=== PATIENT | male | born 1960 | race Two or more races ===

== ENCOUNTER 2022-08-05 21:22 | Inpatient (IN) | payer OTHER, SELFPAY ==
--- NOTE | ~2022-08-05 | XR_ITS ---
EXAMINATION: XR CHEST CLINICAL INFORMATION: Chest pain COMPARISON: None TECHNIQUE: Frontal view of the chest was obtained. FINDINGS: No significant abnormality is noted involving the heart, lungs, mediastinum, bony thorax or soft tissues. XR/XR chest 1V IMPRESSION: Unremarkable examination.
[2022-08-05 21:40] VITALS: BP 122/76; PULSE 123; RESP 18; TEMP 36.6; O2SAT 96; BMI 21.7
--- NOTE | 2022-08-05 21:52 | ED_ITS ---
HPI - Chest Pain General Chief Complaint: General Medical Stated Complaint: cp Time Seen by Provider: 08/05/22 21:52 Source: patient Mode of arrival: ambulatory Limitations: language barrier History of Present Illness HPI narrative: Patient from [place] Romanian-speaking with history of atrial fibrillation comes here for increased shortness of breath and palpitations started half an hour prior to arrival. Patient is on Coumadin and at in a long. Had similar episode a week ago also patient has chronic prostate problem with decreased urination patient felt discomfort in the left chest with palpitations on arrival patient's heart rate was in 130s with AFib no fever no chills Related Data Allergies Allergy/AdvReac Type Severity Reaction Status Date / Time No Known Allergies Allergy Verified 08/05/22 21:43 Review of Systems Review of Systems: Yes all other systems are reviewed and are negative [facility] Social History Social History Advance Directives: No Advance Directives Information Provided: No Physical Exam Vital Signs: Vital Signs: Last Vital Signs Temp 98.9 F 08/05/22 23:46 Pulse 111 H 08/06/22 00:55 Resp 16 08/06/22 00:55 BP 126/80 08/06/22 00:55 Pulse Ox 100 08/06/22 00:55 O2 Del Method 08/06/22 00:55 BMI result Body Mass Index 21.7 Appearance: Alert. Oriented X3. No acute distress. Eyes: PERRLA, No Nystagmus ENT: Pharynx normal. Oral Mucosa moist Neck: Normal inspection. Neck supple. CVS: Irregular irregular heart rate. Pulses normal. Respiratory: No respiratory distress. Equal air entry bilateral, no whee zing/rales/rhonchi Abdomen: Soft and nontender. Bowel sounds are present, no mass palpable, no CVA tenderness Skin: Skin warm and dry. Normal skin color. Normal skin turgor. Extremities: No lower extremity edema. No calf tenderness Neuro: Oriented X 3. No motor deficit. No sensory deficit.No cerebellar signs , cranial nerves II-XII intact MDM - Chest Pain MDM Narrative Medical decision making narrative: 0005 Patient responded partially to Cardizem IV will give dose of Lopressor and recheck 0100 still after Lopressor them Lopressor patient heart rate fluctuating between 110 and 20 will start patient on Cardizem drip plan to admit Lab Data Attestation: I reviewed the patient's lab results. Result diagrams: 08/05/22 22:21 08/05/22 22:21 Labs: Lab Results 08/05/22 08/05/22 08/05/22 Range/Units 22:21 22:21 22:21 WBC 5.2 (4.8-10.8) X10*3/uL RBC 4.16 L (4.60-5.80) X10*6/uL Hgb 12.1 L (14.0-18.0) g/dl Hct 33.9 L (42.0-52.0) % MCV 81.5 (80.0-98.0) fL MCH 29.1 (27.0-33.0) pg MCHC 35.7 (31.0-36.0) g/dl RDW 14.5 (11.0-16.0) % Plt Count 235 (160-400) X10*3/uL MPV 10.0 (9.4-12.4) fL Immature Gran % (Auto) 1.9 H (0.0-0.4) % Neut % (Auto) 80.3 H (45-73) % Lymph % (Auto) 15.0 L (20-40) % [place] % (Auto) 1.2 L (2-11) % Eos % (Auto) 1.2 (0-4) % Baso % (Auto) 0.4 (0-2) % Lymph # (Auto) 0.8 L (1.2-4.9) X10*3/uL [place] # (Auto) 0.1 (0.1-1.2) X10*3/uL Eos # (Auto) 0.1 (0.0-0.4) X10*3/uL Baso # (Auto) 0.0 (0.0-0.2) X10*3/uL Abs Immat Gran (auto) 0.10 H (0.00-0.03) X10*3/uL Absolute Neuts (auto) 4.2 (2.0-8.3) x10*3/uL Absolute Nucleated RBC 0.000 (0.0-0.012) X10*3/uL Nucleated RBC % (auto) 0.0 (0.0-0.2) /100WBC PT 22.8 H (10.0-13.1) SEC INR 1.9 H (0.9-1.1) APTT (26.0-36.4) SEC Sodium (135-145) mmol/L Potassium (3.3-5.1) mmol/L Chloride (96-108) mmol/L Carbon Dioxide (22-29) mmol/L Anion Gap (12-20) BUN (9-16) mg/dL Creatinine (0.5-1.4) mg/dL Estim Creat Clear Calc Estimated GFR Random Glucose (60-115) mg/dL Calcium (8.4-10.2) mg/dL Magnesium (1.6-2.6) mg/dL Total Bilirubin (0.0-1.0) mg/dL AST (5-37) U/L ALT (0-40) U/L Alkaline Phosphatase (39-117) U/L Troponin I High Sens (<3.5-35.0) ng/L Total Protein (6.5-8.0) g/dL Albumin (3.5-5.0) g/dL Ethyl Alcohol mg/dL COVID-19 (ENID) Negative (Negative) COVID-19 Clin Com See Note 08/05/22 08/05/22 08/05/22 Range/Units 22:21 22:21 22:21 WBC (4.8-10.8) X10*3/uL RBC (4.60-5.80) X10*6/uL Hgb (14.0-18.0) g/dl Hct (42.0-52.0) % MCV (80.0-98.0) fL MCH (27.0-33.0) pg MCHC (31.0-36.0) g/dl RDW (11.0-16.0) % Plt Count (160-400) X10*3/uL MPV (9.4-12.4) fL Immature Gran % (Auto) (0.0-0.4) % Neut % (Auto) (45-73) % Lymph % (Auto) (20-40) % [place] % (Auto) (2-11) % Eos % (Auto) (0-4) % Baso % (Auto) (0-2) % Lymph # (Auto) (1.2-4.9) X10*3/uL [place] # (Auto) (0.1-1.2) X10*3/uL Eos # (Auto) (0.0-0.4) X10*3/uL Baso # (Auto) (0.0-0.2) X10*3/uL Abs Immat Gran (auto) (0.00-0.03) X10*3/uL Absolute Neuts (auto) (2.0-8.3) x10*3/uL Absolute Nucleated RBC (0.0-0.012) X10*3/uL Nucleated RBC % (auto) (0.0-0.2) /100WBC PT (10.0-13.1) SEC INR (0.9-1.1) APTT 31.0 (26.0-36.4) SEC Sodium 139 (135-145) mmol/L Potassium 3.5 (3.3-5.1) mmol/L Chloride 102 (96-108) mmol/L Carbon Dioxide 24 (22-29) mmol/L Anion Gap 17 (12-20) BUN 20 H (9-16) mg/dL Creatinine 0.75 (0.5-1.4) mg/dL Estim Creat Clear Calc 87.3 Estimated GFR > 60 Random Glucose 75 (60-115) mg/dL Calcium 8.5 (8.4-10.2) mg/dL Magnesium 1.5 L (1.6-2.6) mg/dL Total Bilirubin 1.7 H (0.0-1.0) mg/dL AST 83 H (5-37) U/L ALT 80 H (0-40) U/L Alkaline Phosphatase 363 H (39-117) U/L Troponin I High Sens 6.5 (<3.5-35.0) ng/L Total Protein 6.5 (6.5-8.0) g/dL Albumin 3.4 L (3.5-5.0) g/dL Ethyl Alcohol mg/dL COVID-19 (ENID) (Negative) COVID-19 Clin Com 08/05/22 Range/Units 22:21 WBC (4.8-10.8) X10*3/uL RBC (4.60-5.80) X10*6/uL Hgb (14.0-18.0) g/dl Hct (42.0-52.0) % MCV (80.0-98.0) fL MCH (27.0-33.0) pg MCHC (31.0-36.0) g/dl RDW (11.0-16.0) % Plt Count (160-400) X10*3/uL MPV (9.4-12.4) fL Immature Gran % (Auto) (0.0-0.4) % Neut % (Auto) (45-73) % Lymph % (Auto) (20-40) % [place] % (Auto) (2-11) % Eos % (Auto) (0-4) % Baso % (Auto) (0-2) % Lymph # (Auto) (1.2-4.9) X10*3/uL [place] # (Auto) (0.1-1.2) X10*3/uL Eos # (Auto) (0.0-0.4) X10*3/uL Baso # (Auto) (0.0-0.2) X10*3/uL Abs Immat Gran (auto) (0.00-0.03) X10*3/uL Absolute Neuts (auto) (2.0-8.3) x10*3/uL Absolute Nucleated RBC (0.0-0.012) X10*3/uL Nucleated RBC % (auto) (0.0-0.2) /100WBC PT (10.0-13.1) SEC INR (0.9-1.1) APTT (26.0-36.4) SEC Sodium (135-145) mmol/L Potassium (3.3-5.1) mmol/L Chloride (96-108) mmol/L Carbon Dioxide (22-29) mmol/L Anion Gap (12-20) BUN (9-16) mg/dL Creatinine (0.5-1.4) mg/dL Estim Creat Clear Calc Estimated GFR Random Glucose (60-115) mg/dL Calcium (8.4-10.2) mg/dL Magnesium (1.6-2.6) mg/dL Total Bilirubin (0.0-1.0) mg/dL AST (5-37) U/L ALT (0-40) U/L Alkaline Phosphatase (39-117) U/L Troponin I High Sens (<3.5-35.0) ng/L Total Protein (6.5-8.0) g/dL Albumin (3.5-5.0) g/dL Ethyl Alcohol < 10 mg/dL COVID-19 (ENID) (Negative) COVID-19 Clin Com ECG Data ECG #1: Attestation: I personally reviewed and interpreted this ECG as follows: Interpretation: Atrial fibrillation with heart rate 101 beats per minute nonspecific ST-T changes no acute ischemia Discharge Plan Discharge Clinical Impression: Atrial fibrillation with rapid ventricular response Patient Disposition: Admitted As Inpatient
--- NOTE | 2022-08-05 21:54 | ECG_ITS ---
Test Reason : TACHYCARDIA Blood Pressure : / mmHG Vent. Rate : 101 BPM Atrial Rate : 000 BPM P-R Int : 000 ms QRS Dur : 088 ms QT Int : 328 ms P-R-T Axes : 000 034 053 degrees QTc Int : 425 ms Atrial fibrillation with rapid ventricular response Nonspecific ST abnormality Abnormal ECG No previous ECGs available Referred By: Chung Meneses Electronically Signed By:YOLANDA CARRILLO
[2022-08-05 22:33] LABS: MANUAL DIFF FLAG NO
[2022-08-05 22:37] LABS: Basophils Percent Auto 0.4 % (0-2); Eosinophils Absolute Auto 0.1 X10*3/uL (0.0-0.4); Eosinophils Percent Auto 1.2 % (0-4); Hematocrit 33.9 % (42.0-52.0); Hemoglobin 12.1 g/dl (14.0-18.0); Imm Gran Pct Auto 1.9 % (0.0-0.4); Lymphocytes Absolute Auto 0.8 X10*3/uL (1.2-4.9); Mean Corpuscular HGB Conc 35.7 g/dl (31.0-36.0); Mean Corpuscular Hemoglobin 29.1 pg (27.0-33.0); Mean Corpuscular Volume 81.5 fL (80.0-98.0); Monocytes Absolute Auto 0.1 X10*3/uL (0.1-1.2); Monocytes Percent Auto 1.2 % (2-11); Neutrophils Absolute Auto 4.2 x10*3/uL (2.0-8.3); Neutrophils Percent Auto 80.3 % (45-73); Platelet Count 235 X10*3/uL (160-400); Red Blood Count 4.16 X10*6/uL (4.60-5.80); Red Cell Distribution Width 14.5 % (11.0-16.0); White Blood Count 5.2 X10*3/uL (4.8-10.8)
[2022-08-05 22:42] LABS: INTERNATIONAL NORM RATIO 1.9 (0.9-1.1); Prothrombin Time 22.8 SEC (10.0-13.1)
[2022-08-05 22:48] LABS: Ethanol < 10 mg/dL
[2022-08-05 22:51] LABS: Alanine Aminotransferase 80 U/L (0-40); Albumin Level 3.4 g/dL (3.5-5.0); Alkaline Phosphatase 363 U/L (39-117); Anion Gap 17 (12-20); Aspartate Amino Transferase 83 U/L (5-37); Bilirubin Total 1.7 mg/dL (0.0-1.0); Blood Urea Nitrogen 20 mg/dL (9-16); Calcium 8.5 mg/dL (8.4-10.2); Carbon Dioxide 24 mmol/L (22-29); Chloride 102 mmol/L (96-108); Creatinine Clr Calc Pharmacy 87.3; Estimated Glomerular Filt Rate > 60; Glucose Random 75 mg/dL (60-115); Magnesium 1.5 mg/dL (1.6-2.6); Potassium 3.5 mmol/L (3.3-5.1); Sodium 139 mmol/L (135-145); Total Protein 6.5 g/dL (6.5-8.0)
[2022-08-05 22:54] LABS: COVID-19 Test Negative (Negative)
[2022-08-05 22:56] LABS: Troponin-I High Sensitivity 6.5 ng/L (<3.5-35.0)
[2022-08-05 23:19] VITALS: BP 122/71; PULSE 108; RESP 17; O2SAT 97
[2022-08-05] MEDS: dilTIAZem HCL 50 MG/10 ML VIAL 20 MG IVPUSH (23:22)
[2022-08-05 23:46] VITALS: BP 103/64; PULSE 99; RESP 21; TEMP 37.2; O2SAT 97
[2022-08-06] VITALS (27 sets, daily range): BP systolic 82–128; BP diastolic 52–81; PULSE 66–142; RESP 9–32; TEMP 36.6–39; O2SAT 95–100
[2022-08-06] MEDS: Metoprolol Tartrate 5 MG/5 ML VIAL IVPUSH (00:53)
[2022-08-06] MEDS: Magnesium Sulfate/H2O 2 GM/50 ML PIGGYBACK IV (01:46)
[2022-08-06] MEDS: dilTIAZem HCL 125 MG in 0.9 % Sodium Chloride 100 ML 10 MG IVCONT ×2 (02:20→09:01)
--- NOTE | 2022-08-06 04:33 | PC.NURSE ---
Changed pt bed to a hospital bed. Pt ambulated to the new hospital from ED stretcher no dizziness.
--- NOTE | 2022-08-06 04:40 | PC.NURSE ---
Pt's heart rate fluctuating between mid 80s to high 90s. PT remains afib on the monitor. A tigerconnect communication was sent to MD Dhaliwal at 0420 making her aware of the pt's heart rate and asking how this RN should proceed as the heart rate does not consistently stay below 90s. Current protocol reports medication should be held for a HR <90. RN Received communication from MD Dhaliwal at 0448 that the medication should continue to be held. EDT assisted with transitioning the pt from stretcher to hospital bed for comfort per request
[2022-08-06 04:45] LABS: Basophils Absolute Auto 0.1 X10*3/uL (0.0-0.2); Basophils Percent Auto 0.5 % (0-2); Hematocrit 37.4 % (42.0-52.0); Hemoglobin 13.1 g/dl (14.0-18.0); Imm Gran Abs Auto 0.25 X10*3/uL (0.00-0.03); Lymphocytes Absolute Auto 0.8 X10*3/uL (1.2-4.9); Lymphocytes Percent Auto 3.1 % (20-40); MANUAL DIFF FLAG SCAN; Mean Corpuscular Hemoglobin 29.1 pg (27.0-33.0); Mean Corpuscular Volume 83.1 fL (80.0-98.0); Mean Platelet Volume 10.3 fL (9.4-12.4); Monocytes Absolute Auto 1.1 X10*3/uL (0.1-1.2); Monocytes Percent Auto 4.3 % (2-11); Neutrophils Absolute Auto 22.9 x10*3/uL (2.0-8.3); Neutrophils Percent Auto 91.1 % (45-73); Platelet Count 241 X10*3/uL (160-400); Red Cell Distribution Width 14.5 % (11.0-16.0); SCAN SMEAR FLAG 1; White Blood Count 25.1 X10*3/uL (4.8-10.8)
[2022-08-06 04:50] LABS: SLIDE REVIEW VERIFIED
[2022-08-06 05:18] LABS: Anion Gap 19 (12-20); Blood Urea Nitrogen 15 mg/dL (9-16); Calcium 8.7 mg/dL (8.4-10.2); Carbon Dioxide 24 mmol/L (22-29); Chloride 102 mmol/L (96-108); Creatinine Clr Calc Pharmacy 88.4; Estimated Glomerular Filt Rate > 60; Glucose Random 92 mg/dL (60-115); Potassium 3.6 mmol/L (3.3-5.1); Sodium 141 mmol/L (135-145)
[2022-08-06 06:34] LABS: Lactic Acid 1.7 mmol/L (0.5-2.0)
--- NOTE | 2022-08-06 06:44 | P.HPHOSP_ITS ---
History of Present Illness Date of Service: 08/06/22 Chief Complaint: palpitations, urinary frequency Chadian-speaking, history is obtained with the help of safety attendant 61-year-old male with past medical history of AFib, HTN, reports history of prostate cancer diagnosed in [place] presents to the hospital after arriving from [place] few days ago with complaints of urinary urgency, as well as chills and feeling of trembling all over his body. Patient reports that he has history of prostate cancer and was supposed to see a urologist in [place] but he came [place] the [place] visit his family and will be staying here. He also reports chest palpitations, some shortness of breath, with no dizziness, no headache, no change in vision. No abdominal pain nausea or vomiting, no diarrhea constipation, no lower extremity edema, orthopnea PND. No numbness weakness or tingling. On arrival to the ED patient heart rate was found to be in the 120s to 140s, otherwise stable Labs are significant for WBC count of 5.2, hemoglobin of 12.1, hematocrit 33.9, INR of 1.9, magnesium of 1.5, bili of 1.7, AST of 83, ALT of 80, alk-phos of 363, labs otherwise unremarkable, UA is pending Review of Systems Review of Systems: Yes all other systems are reviewed and are negative [facility] Medical History (Updated 08/06/22 @ 06:52 by Arjun Dhaliwal MD) Atrial fibrillation History of prostate cancer HTN (hypertension), benign Family History (Updated 08/06/22 @ 06:49 by Arjun Dhaliwal MD) Father Prostate cancer Surgical History (Updated 08/06/22 @ 06:49 by Arjun Dhaliwal MD) No pertinent past surgical history Social History (Updated 08/06/22 @ 06:49 by Arjun Dhaliwal MD) Alcohol intake: never Patient Tobacco Use Status: Former Tobacco user Use of substances other than those prescribed or required for medical reasons: No Advance Directives: No Advance Directives Information Provided: No Meds Allergies Allergy/AdvReac Type Severity Reaction Status Date / Time No Known Allergies Allergy Verified 08/05/22 21:43 Active Medications: Current Medications Acetaminophen (Acetaminophen 325 Mg Tablet) 650 mg PO Q6H PRN PRN Reason: Pain, Mild (Pain Scale 1-3) Heparin Sodium (Porcine) (Heparin Sodium,Porcine 5,000 Unit/Ml Vial) 5,000 unit SUBCUT Q12H [facility] Diltiazem HCl 125 mg/ Sodium (Chloride) 125 mls @ 0 mls/hr IVCONT .Q0M [facility]; Protocol Last Titration: 08/06/22 04:38 Dose: 0 mg/hr, 0 mls/hr Ondansetron HCl (Ondansetron Hcl 4 Mg/2 Ml Vial) 4 mg IVPUSH Q8H PRN PRN Reason: Nausea and Vomiting Sodium Chloride (0.9 % Sodium Chloride Flush 3 Ml Syringe) 3 ml IVFLUSH QSHIFT [facility] Home Medications Medication Instructions Recorded Confirmed Last Taken Type amlodipine 5 mg tablet mg 08/06/22 Unknown History atenolol 50 mg tablet mg 08/06/22 Unknown History clonazepam 0.5 mg tablet (Klonopin) mg 08/06/22 08/06/22 Unknown History famotidine 20 mg tablet (Pepcid) mg 08/06/22 Unknown History simvastatin 20 mg tablet mg 08/06/22 Unknown History temazepam 30 mg capsule mg 08/06/22 Unknown History warfarin 6 mg tablet mg 08/06/22 Unknown History Physical Exam Vital Signs and Narrative: Vital Signs: Last Vital Signs Temp 98.9 F 08/05/22 23:46 Pulse 93 08/06/22 03:32 Resp 9 L 08/06/22 03:32 BP 98/64 08/06/22 03:32 Pulse Ox 100 08/06/22 03:32 O2 Del Method 08/06/22 03:32 BMI result Body Mass Index 21.7 Const: General: cooperative and no acute distress Orientation/consciousness: patient oriented x3 Eyes: General: appearance normal, both eyes and all related structures Pupils: Equal, round and reactive pupils present Resp: Effort & Inspection: normal respiratory effort Auscultation: clear to auscultation bilaterally Cardio: Other: Irregular rhythm Rate: regular rate GI: Palpation (GI): Soft to palpation Auscultation: normal bowel sounds Skin: General skin exam: no rashes or lesions noted Neuro: General: patient oriented x3 Cranial nerves: Yes Equal, round and reactive pupils present Cognition (Neuro): normal cognition Extrem: General: Yes normal to inspection and Yes no pedal edema Results Labs CBC and Chem 7: 08/06/22 04:39 08/06/22 04:39 Labs: Laboratory Results - last 24 hr 08/05/22 08/05/22 08/05/22 22:21 22:21 22:21 MCV 81.5 MCH 29.1 MCHC 35.7 RDW 14.5 Plt Count 235 MPV 10.0 Immature Gran % (Auto) 1.9 H Neut % (Auto) 80.3 H Lymph % (Auto) 15.0 L [place] % (Auto) 1.2 L Eos % (Auto) 1.2 Baso % (Auto) 0.4 Lymph # (Auto) 0.8 L [place] # (Auto) 0.1 Eos # (Auto) 0.1 Baso # (Auto) 0.0 Abs Immat Gran (auto) 0.10 H Absolute Neuts (auto) 4.2 Absolute Nucleated RBC 0.000 Nucleated RBC % (auto) 0.0 Smear Tech's Comments PT 22.8 H INR 1.9 H APTT Anion Gap Estim Creat Clear Calc Estimated GFR Random Glucose Lactic Acid Calcium Magnesium Total Bilirubin AST ALT Alkaline Phosphatase Total Protein Albumin Ethyl Alcohol COVID-19 (ENID) Negative COVID-19 Clin Com See Note 08/05/22 08/05/22 08/05/22 22:21 22:21 22:21 MCV MCH MCHC RDW Plt Count MPV Immature Gran % (Auto) Neut % (Auto) Lymph % (Auto) [place] % (Auto) Eos % (Auto) Baso % (Auto) Lymph # (Auto) [place] # (Auto) Eos # (Auto) Baso # (Auto) Abs Immat Gran (auto) Absolute Neuts (auto) Absolute Nucleated RBC Nucleated RBC % (auto) Smear Tech's Comments PT INR APTT 31.0 Anion Gap 17 Estim Creat Clear Calc 87.3 Estimated GFR > 60 Random Glucose 75 Lactic Acid Calcium 8.5 Magnesium 1.5 L Total Bilirubin 1.7 H AST 83 H ALT 80 H Alkaline Phosphatase 363 H Total Protein 6.5 Albumin 3.4 L Ethyl Alcohol < 10 COVID-19 (ENID) COVID-19 Clin Com 08/06/22 08/06/22 08/06/22 04:39 04:39 06:20 MCV 83.1 MCH 29.1 MCHC 35.0 RDW 14.5 Plt Count 241 MPV 10.3 Immature Gran % (Auto) 1.0 H Neut % (Auto) 91.1 H Lymph % (Auto) 3.1 L [place] % (Auto) 4.3 Eos % (Auto) 0.0 Baso % (Auto) 0.5 Lymph # (Auto) 0.8 L [place] # (Auto) 1.1 Eos # (Auto) 0.0 Baso # (Auto) 0.1 Abs Immat Gran (auto) 0.25 H Absolute Neuts (auto) 22.9 H Absolute Nucleated RBC 0.000 Nucleated RBC % (auto) 0.0 Smear Tech's Comments VERIFIED PT INR APTT Anion Gap 19 Estim Creat Clear Calc 88.4 Estimated GFR > 60 Random Glucose 92 Lactic Acid 1.7 Calcium 8.7 Magnesium Total Bilirubin AST ALT Alkaline Phosphatase Total Protein Albumin Ethyl Alcohol COVID-19 (ENID) COVID-19 Clin Com Imaging Radiologist's Impressions: Impressions Chest X-Ray 08/05/22 22:00 IMPRESSION: Unremarkable examination. Assessment and Plan (1) Atrial fibrillation with rapid ventricular response: Status: Acute (2) Urinary frequency: Status: Acute (3) Hypomagnesemia: Status: Acute Plan 61-year-old male with a past medical history of AFib, atenolol, as well as reported history of prostate cancer who comes in from [place] few days ago, comes into the hospital with AFib # AFib with RVR - troponin negative, EKG not suggestive of ACS - likely secondary to acute infection in the urine patient is complaining of urinary frequency although has no fever, no lactic acidosis, and no leukocytosis on arrival - patient started on Cardizem drip after failing IV pushes of Cardizem and metop rolol - patient on atenolol at home, will resume - titrate Cardizem off as tolerated - continue warfarin for a.c. # urinary frequency - UA pending - has no leukocytosis, afebrile, lactic acid normal - given his history of prostate cancer, as well as urinary frequency, will empirically treat him with ceftriaxone pending UA, UA negative, will stop antibiotics # hypertension - stable -resume home medications # prostate cancer - patient reports he was diagnosed with prostate cancer in [place] - I advised him to follow-up with Dr. Bustos upon discharge - please see that he receives a referral to urologist on discharge DVT prophylaxis: Continue warfarin Given AFib with RVR, requiring IV Cardizem patient will require minimum 2 night hospital stay for further management and monitoring Quality Stroke Does the patient have a stroke diagnosis?: No VTE Prior VTE?: No VTE Risk Level:: Medical - moderate - high VTE Device Contraindication: Treatment Not Indicated VTE Drug Contraindication: N/A - Med Ordered
--- NOTE | 2022-08-06 06:56 | PC.NURSE ---
Hospitalist made aware of the pt's HR trending upward as HR noted to fluctuate between low 90s and low 100s. RN outreached MD to determine whether or not the pt's Cardizem drip should be initiated again. Per MD the pt has new orders for atenolol in place and she would like staff to try the pt with PO Atenolol and if that does not work we will resume the pt's cardizem drip. RN waiting for atenolol to cross over and become available. UA recently ordered, RN to attempt to collect sample per request/order
--- NOTE | 2022-08-06 07:00 | CA_ITS ---
Transthoracic Echocardiogram Patient (Last, First, Middle): Alex Dick, Gender: Male Date of : 1960 Age: 61 Procedure Date: 08/06/2022 Procedure Type: Transthoracic [place] [facility] [place]: 167.64 cm Weight: 61.24 kg BSA: 1.69 m2 Heart Rate: bpm BP: 112 / 76 mmHg Fondant Machine Operator: Referring MD: Arjun Dhaliwal MD Wafer Abrading Machine Tender: Art Nino MD Symptoms: AFib with RVR Study Quality: Good ECG Rhythm: Atrial Fibrillation Conclusions: - 1. Normal LV systolic function 2. Mild biatrial enlargement 3. Mild mitral and tricuspid regurgitation 4. Normal RV systolic pressure 5. No gross pericardial effusion Findings Left Ventricle Normal left ventricular size, thickness, and systolic function. The visually estimated ejection fraction is between 60-65%. Diastolic function is indeterminate on the basis of available data. Right Ventricle Mildly increased right ventricular cavity size. There is normal right ventricular systolic function. Atria Mild biatrial enlargement. Interatrial shunt cannot be excluded. Aortic Valve Normal aortic valve structure and function. There is no aortic valve stenosis. There is no aortic valve regurgitation. Mitral Valve Normal mitral valve structure and function. There is mild mitral valve regurgitation. There is no mitral valve stenosis. Pulmonic Valve The pulmonic valve is likely normal. There is trace pulmonic valve regurgitation. Tricuspid Valve Normal tricuspid valve structure. There is mild tricuspid valve regurgitation. The right ventricular systolic pressure is normal. The right ventricular systolic pressure is 35 mmHg. Normal right atrial pressure. There is no evidence of pulmonary hypertension. Great Vessels All visible segments of the aorta are normal in size. The pulmonary artery was not well visualized. Venous The inferior vena cava is normal in size and collapses greater than 50% with inspiration. Pericardium/Pleural There is no evidence of pericardial effusion. Prior Study Comparison No prior study available for comparison. Measurements 2D Linear Measurements IVSd: 0.82 0.6-0.9/0.6-1.0 cm LVIDd: 5.20 3.9-5.3/4.2-5.9 cm LVIDd Index: 3.08 2.4-3.2/2.2-3.1 cm/m2 LVIDs: 3.08 2.0-3.6 cm LVPWd: 0.94 0.7-1.1 cm Ao Root: 3.10 2.1-3.5 cm LA Diam: 4.30 2.7-3.8/3.0-4.0 cm LAIDs Index: 2.54 1.5-2.3 cm/m2 LV Mass: 204.41 67-162/88-224 g LV Mass Index: 120.95 43-95/49-115 g/m2 LVOT Diam: 1.90 3.0+(-)1.3 cm Mitral Valve MV Pk E: 0.85 MV Decel Time: 172.00 E'Lateral: 15.70 E'Medial: 10.80 E/E' Med: 7.90 E/E' Lat: 5.40 PHT: 51.00 MVA PHT: 4.31 Decel [place]: 4.92 Aortic Valve AoV Pk Akhil: 1.69 AoV Mn Akhil: 1.14 AoV VTI: 0.27 AoV Pk Grad: 11.00 Aov Mn Grad: 6.00 URIAH Cont.VTI: 1.74 LVOT LVOT Pk Akhil: 0.92 LVOT Mn Akhil: 0.72 LVOT VTI: 0.16 LVOT Pk Grad: 3.00 LVOT Mn Grad: 2.00 LVOT Diam: 1.90 LVOT Area: 2.84 Diastolic Function MV Pk E: 0.85 E'Medial: 10.80 E/E' Med: 7.90 E' Laterial: 15.70 E/E' Lat: 5.40 Right Ventricle TAPSE (mm): 18.00 TVS' Akhil: 14.00 Tricuspid Valve TR Pk Akhil: 2.85 TR Pk Grad: 32.00 RA Press: 3.00 RVSP: 35.00 Great Vessels Aorta Ao Root-2D: 3.10 2.0-3.7 cm Ao Asc: 3.10 2.1-3.4 cm Pulmonary Valve PV Pk Akhil: 1.18 Peak PV Grad: 6.00 Updated in Other Vendor System with Status of Final Art Nino MD electronically signed on 08/06/2022 12:21:35 PM with status of Final
[2022-08-06] MEDS: Heparin Sodium,Porcine 5,000 UNIT/ML VIAL 5000 UNIT SUBCUT ×2 (07:02→17:12)
[2022-08-06] MEDS: cefTRIAXone sodium 1 GM in 0.9 % Sodium Chloride 50 ML IV (07:03)
--- NOTE | 2022-08-06 07:33 | PC.NURSE ---
Patient primarily Faroese speaking only . use of retail client solutions analyst for assessment . A?Ox4 / pearrla . sclera blood shot . heart rate irregular at 96 - 119 . currently on cardiac monitoring as ordered . skin warm , moist and appropriate for ethnicity . abdomen soft non distended . rebounded tenderness noted on left side . patient reports prostate issues that he currently takes medication for that has not seem to help . UA has been sent by previous nurse . patient reports 0/10 pain level . patient aware of plan of care . ultrasound at bedside . son at bedside . family and patient aware of plan of care .
[2022-08-06 07:43] LABS: Appearance Urine Cloudy; Color Urine Yellow; Glucose Urine UA Negative (Negative); Leukocyte Esterase Urine Large (3+) (Negative); Nitrite Urine Negative (Negative); PH 6.5 (5.0-9.0); Urine Blood Negative (Negative); Urine Ketones 40 mg/dL (Negative); Urine Protein Negative (Neg-Trace)
--- NOTE | 2022-08-06 07:45 | PC.NURSE ---
ultrasound at bedside.
[2022-08-06 07:48] LABS: Bacteria Urine 4+ (None Seen); Hyaline Casts Urine 0-2 /LPF (0-2); RBC Urine 0-2 /HPF (0-2); Squamous Epithelial Cell Urine 0-2 /HPF (0-2); UACC Culture Trigger YES; WBC Urine >50 /HPF (0-5)
[2022-08-06] MEDS: 0.9 % Sodium Chloride Flush 3 ML SYRINGE IVFLUSH ×3 (08:40→23:48)
[2022-08-06] MEDS: atenoloL 25 MG TABLET PO (08:40)
[2022-08-06 08:43] LABS: INTERNATIONAL NORM RATIO 1.9 (0.9-1.1); Prothrombin Time 22.1 SEC (10.0-13.1)
[2022-08-06] MEDS: Acetaminophen 325 MG TABLET 650 MG PO (08:46)
--- NOTE | 2022-08-06 09:01 | PHA.MEDREC ---
Pharmacy Consult ? Medication Reconciliation Pharmacy has completed the medication reconciliation. Carmencita interpreted for me, pt had photos of rx bottles, ask pt about frequencies. Pt stated that he uses both clonazepam and temazepam at bedtime.
--- NOTE | 2022-08-06 09:02 | PC.NURSE ---
pt a/o x 4, shivering, rectal tem 102.2, hr 180 md aware. diltiazem restarted at 10mg/hr.
[2022-08-06] MEDS: 0.9 % Sodium Chloride 1,837.05 ML 1837.05 ML IV (09:07)
--- NOTE | 2022-08-06 09:07 | PC.NURSE ---
ns 1l wide open initiated per dr. mart.
[2022-08-06] MEDS: Piperacillin Sodium/Tazobactam 3.375 GM in 0.9 % Sodium Chloride 50 ML IV ×2 (10:27→17:14)
--- NOTE | 2022-08-06 11:23 | P.CNUR_ITS ---
History of Present Illness Consult details Consult date: 08/06/22 Narrative: Consulting complaint urinary retention 61-year-old male. [place]olan Apparently had treatment for prostate cancer at some point Presents with inability to void Bladder scan for over 500 cc Meatal stenosis with inability for nursing staff to place catheter in emergency room Catheter placed after dilatation of meatal narrowing Sixteen [place] Branch catheter with 600 cc Start alpha-maycol 4 week follow-up voiding trial urology office Review of Systems Constitutional: Constitutional: Reports as per HPI and Reports no additional constitutional complaints Cardiovascular: Cardiovascular: Reports as per HPI and Reports no additional cardiovascular complaints Respiratory: Respiratory: Reports as per HPI and Reports no additional respiratory complaints Gastrointestinal: Gastrointestinal: Reports as per HPI and Reports no additional gastrointestinal complaints Genitourinary: Genitourinary: Reports as per HPI Musculoskeletal: Musculoskeletal: Reports no additional musculoskeletal complaints and Reports as per HPI Neurologic: Reports system reviewed and no additional complaints, except as documented and Reports as per HPI PMFSH Past Medical History Medical History (Updated 08/06/22 @ 11:25 by John Bustos MD) Atrial fibrillation History of prostate cancer HTN (hypertension), benign Family History Family History (Updated 08/06/22 @ 06:49 by Arjun Dhaliwal MD) Father Prostate cancer Surgical History Surgical History (Updated 08/06/22 @ 06:49 by Arjun Dhaliwal MD) No pertinent past surgical history Social History Social History (Updated 08/06/22 @ 06:49 by Arjun Dhaliwal MD) Alcohol intake: never Patient Tobacco Use Status: Former Tobacco user Use of substances other than those prescribed or required for medical reasons: No Advance Directives: No Advance Directives Information Provided: No Meds Allergies Allergy/AdvReac Type Severity Reaction Status Date / Time No Known Allergies Allergy Verified 08/05/22 21:43 Active Medications: Current Medications Acetaminophen (Acetaminophen 325 Mg Tablet) 650 mg PO Q6H PRN PRN Reason: Pain, Mild (Pain Scale 1-3) Last Admin: 08/06/22 08:46 Dose: 650 mg Atenolol (Atenolol 25 Mg Tablet) 25 mg PO BID KAYDEN; Protocol Last Admin: 08/06/22 08:40 Dose: 25 mg Atorvastatin Calcium (Atorvastatin Calcium 10 Mg Tablet) 10 mg PO BEDTIME KAYDEN Clonazepam (Clonazepam 0.5 Mg Tablet) 0.5 mg PO BEDTIME PRN PRN Reason: Anxiety Cyanocobalamin (Cyanocobalamin (Vitamin B-12) 1,000 Mcg Tablet) 1,000 mcg PO DAILY [facility] Famotidine (Famotidine 20 Mg Tablet) 20 mg PO DAILY [facility] Heparin Sodium (Porcine) (Heparin Sodium,Porcine 5,000 Unit/Ml Vial) 5,000 unit SUBCUT Q12H [facility] Last Admin: 08/06/22 07:02 Dose: 5,000 unit Diltiazem HCl 125 mg/ Sodium (Chloride) 125 mls @ 0 mls/hr IVCONT .Q0M [facility]; Protocol Last Titration: 08/06/22 10:49 Dose: 0 mg/hr, 0 mls/hr Vancomycin HCl 1,000 mg/ (Sodium Chloride) 270 mls @ 270 mls/hr IV Q12H [facility] Piperacillin Sod/Tazobactam (Sod 3.375 gm/ Sodium Chloride) 50 mls @ 100 mls/hr IV Q6H [facility] Last Admin: 08/06/22 10:27 Dose: 100 mls/hr Vancomycin HCl 1,500 mg/ (Sodium Chloride) 500 mls @ 333.333 mls/hr IV ONCE ONE Stop: 08/06/22 11:44 Sodium Chloride (Ns) 1,000 mls @ 100 mls/hr IVCONT .Q10H [facility] Ondansetron HCl (Ondansetron Hcl 4 Mg/2 Ml Vial) 4 mg IVPUSH Q8H PRN PRN Reason: Nausea and Vomiting Pharmacy Consult (Consult Rx Perform Med Rec) 1 each MISCELLANE ONCE PRN PRN Reason: Consult order Pharmacy Consult (Consult Rx Vancomycin Dosing) 1 each MISCELLANE DAILY PRN PRN Reason: Consult order Sodium Chloride (0.9 % Sodium Chloride Flush 3 Ml Syringe) 3 ml IVFLUSH QSHIFT [facility] Last Admin: 08/06/22 08:40 Dose: 3 ml Temazepam (Temazepam 15 Mg Capsule) 30 mg PO BEDTIME [facility] Warfarin Sodium (Warfarin Sodium 6 Mg Tablet) 6 mg PO DAILY@1800 [facility] Home Medications Medication Instructions Recorded Confirmed Last Taken Type amlodipine 5 mg tablet 5 mg PO DAILY 08/06/22 08/06/22 Unknown History atenolol 50 mg tablet 50 mg PO DAILY 08/06/22 08/06/22 Unknown History clonazepam 0.5 mg tablet (Klonopin) 0.5 mg PO BEDTIME PRN Anxiety 08/06/22 08/06/22 Unknown History cyanocobalamin (vitamin B-12) 1,000 mcg PO DAILY 08/06/22 08/06/22 Unknown History 1,000 mcg tablet famotidine 20 mg tablet (Pepcid) 20 mg PO DAILY 08/06/22 08/06/22 Unknown History methenamine-m.blue-sod 1 tab PO DAILY 08/06/22 08/06/22 Unknown History phos-p.kina-hyosc 81.6 mg-10.8 mg-40.8 mg tablet (Phosphasal) multivit,Ca,min-iron 8 mg-folic 1 tab PO DAILY 08/06/22 08/06/22 Unknown History acid 200 mcg-lycopene 600 mcg tablet (Centrum Men) simvastatin 20 mg tablet 20 mg PO DAILY 08/06/22 08/06/22 Unknown History temazepam 30 mg capsule 30 mg PO BEDTIME 08/06/22 08/06/22 Unknown History warfarin 6 mg tablet 6 mg PO DAILY 08/06/22 08/06/22 Unknown History Physical Exam Vital Signs: Vital Signs: Last Vital Signs Temp 98.7 F 08/06/22 11:22 Pulse 107 H 08/06/22 11:19 Resp 30 H 08/06/22 11:19 BP 101/66 08/06/22 11:19 Pulse Ox 97 08/06/22 11:19 O2 Del Method 08/06/22 11:19 BMI result Body Mass Index 21.7 Const: General: cooperative, healthy appearing, comfortable and no acute distress Orientation/consciousness: patient oriented x3 HEENT: Face and sinus: Yes normal facial exam Mouth: moist mucous membranes Neck: Neck: Yes normal visual inspection, Yes full ROM and Yes trachea midline Chest: Chest palpation & inspection: normal inspection of the chest Resp: Effort & Inspection: normal respiratory effort, able to speak in complete sentences and no respiratory distress GI: Inspection: Yes normal to inspection Back/Spine/Pelvis: Cervical Spine: normal cervical lordosis Thoracic/Lumbar Spine: thoracic and lumbar spine normal to inspection Skin: General skin exam: no rashes or lesions noted Neuro: General: patient oriented x3, tone normal and moves all extremities Extrem: General: Yes normal to inspection and Yes capillary refill normal Results Labs Result diagrams: 08/06/22 04:39 08/06/22 04:39 Labs: Abnormal lab results 08/05/22 08/05/22 08/05/22 Range/Units 22:21 22:21 22:21 WBC (4.8-10.8) X10*3/uL RBC 4.16 L (4.60-5.80) X10*6/uL Hgb 12.1 L (14.0-18.0) g/dl Hct 33.9 L (42.0-52.0) % Immature Gran % (Auto) 1.9 H (0.0-0.4) % Neut % (Auto) 80.3 H (45-73) % Lymph % (Auto) 15.0 L (20-40) % [place] % (Auto) 1.2 L (2-11) % Lymph # (Auto) 0.8 L (1.2-4.9) X10*3/uL Abs Immat Gran (auto) 0.10 H (0.00-0.03) X10*3/uL Absolute Neuts (auto) (2.0-8.3) x10*3/uL PT 22.8 H (10.0-13.1) SEC INR 1.9 H (0.9-1.1) BUN 20 H (9-16) mg/dL Magnesium 1.5 L (1.6-2.6) mg/dL Total Bilirubin 1.7 H (0.0-1.0) mg/dL AST 83 H (5-37) U/L ALT 80 H (0-40) U/L Alkaline Phosphatase 363 H (39-117) U/L Albumin 3.4 L (3.5-5.0) g/dL Ur Leukocyte Esterase (Negative) Urine WBC (0-5) /HPF 08/06/22 08/06/22 08/06/22 Range/Units 04:39 07:11 08:31 WBC 25.1 H (4.8-10.8) X10*3/uL RBC 4.50 L (4.60-5.80) X10*6/uL Hgb 13.1 L (14.0-18.0) g/dl Hct 37.4 L (42.0-52.0) % Immature Gran % (Auto) 1.0 H (0.0-0.4) % Neut % (Auto) 91.1 H (45-73) % Lymph % (Auto) 3.1 L (20-40) % [place] % (Auto) (2-11) % Lymph # (Auto) 0.8 L (1.2-4.9) X10*3/uL Abs Immat Gran (auto) 0.25 H (0.00-0.03) X10*3/uL Absolute Neuts (auto) 22.9 H (2.0-8.3) x10*3/uL PT 22.1 H (10.0-13.1) SEC INR 1.9 H (0.9-1.1) BUN (9-16) mg/dL Magnesium (1.6-2.6) mg/dL Total Bilirubin (0.0-1.0) mg/dL AST (5-37) U/L ALT (0-40) U/L Alkaline Phosphatase (39-117) U/L Albumin (3.5-5.0) g/dL Ur Leukocyte Esterase Large (3+) H (Negative) Urine WBC >50 H (0-5) /HPF Short CBC 08/05/22 08/06/22 Range/Units 22:21 04:39 WBC 5.2 25.1 H (4.8-10.8) X10*3/uL Hgb 12.1 L 13.1 L (14.0-18.0) g/dl Hct 33.9 L 37.4 L (42.0-52.0) % Plt Count 235 241 (160-400) X10*3/uL BMP 08/05/22 08/06/22 22:21 04:39 Sodium 139 141 Potassium 3.5 3.6 Chloride 102 102 Carbon Dioxide 24 24 BUN 20 H 15 Creatinine 0.75 0.74 Calcium 8.5 8.7 Liver Function 08/05/22 Range/Units 22:21 Total Bilirubin 1.7 H (0.0-1.0) mg/dL AST 83 H (5-37) U/L ALT 80 H (0-40) U/L Alkaline Phosphatase 363 H (39-117) U/L Albumin 3.4 L (3.5-5.0) g/dL Urine 08/06/22 Range/Units 07:11 Urine Color Yellow Urine Appearance Cloudy Urine pH 6.5 (5.0-9.0) Ur Specific [place] 1.010 (1.005-1.025) Urine Protein Negative (Neg-Trace) mg/dL Urine Glucose (UA) Negative (Negative) mg/dL All other labs normal. Assessment and Plan (1) Urinary frequency: Status: Acute (2) Difficult Branch catheter placement: Status: Acute Plan 4 week follow-up voiding trial urology office Procedures Date of Service Date of Service: 08/06/22 Catheter Insertion (Urinary) Replacement of catheter present on admission: No Reason for placing: Acute urinary retention Bladder scan/ultrasound used before catheterization: Yes Estimated amount of urine (mLs): 500 Antiseptic solution prep: Povidone-Iodine Topical anesthesia used: Yes Catheter type/location: 2-way Urethral Size ([place]ankan): 16 Catheter balloon size (mL): 10 Results: successfully catheterized-immediate flow Procedure performed: with complications Complications: Male stenosis required dilatation prior to placement of catheter Additional comments: 600 cc output at time of placement
[2022-08-06] MEDS: vancomycin HCL 1,500 MG in 0.9 % Sodium Chloride 500 ML 333.33 MG IV (11:39)
[2022-08-06] MEDS: 0.9 % Sodium Chloride 1,000 ML 100 ML IVCONT (11:49)
--- NOTE | 2022-08-06 12:20 | MHC.CM.PN ---
met with pt and his son in [place] this country [place] 3 [place] has no pcp but an appt in oct he lives with son is lori rahmanx x 3 hcp filed has own ride home
--- NOTE | 2022-08-06 12:54 | PHA.PROG ---
Admission Date/Time: August 06, 2022 03:39 Indication: other/empiric coverage Weight in k.235 kg Adjusted body weight in Kg: [place] body weight in Kg: Obesity Dosing Indication % IBW: Serum Creatinine - Last 168 Hours 08/05/22 08/06/22 22:21 04:39 Creatinine 0.75 0.74 Estimated CrCl and GFR - Last 168 Hours 08/05/22 08/06/22 22:21 04:39 Estim Creat Clear Calc 87.3 88.4 Estimated GFR > 60 > 60 Vancomycin Loading Dose: 1500mg x 1 Current Vancomycin Dosing Regimen: 1000mg Q12H Vancomycin Monitoring using AUC goal of 400 - 600 range with trough as surrogate marker: 564mg/L Date and Time for next Vancomycin Level to be drawn: 08/07/22 @2100 Pharmacist Comments on Vancomycin Plan: Pt has good renal function, will continue to monitor Vancomycin dosing will take advantage of [employer] as a clinical decision support tool that uses Bayesian modeling to calculate individual patient's pharmacokinetic parameters and forecast the patient's drug concentration time course with the target goal AUC 24 range of 400 - 600 mg/L/hr.
[2022-08-06] MEDS: 0.9 % Sodium Chloride 1,000 ML 999 ML IVCONT (13:10)
--- NOTE | 2022-08-06 13:11 | PC.NURSE ---
patient blood preasure 83/52 and then 77/51 . patient arousable and asymptomatic . patient positioned in trendelenburg . Hospitalist Dr. Chavarria contacted . 1 liter IV fluids given as ordered . Dr. Chavarria at bedside . patient BP improved to 89/59 . patient and family aware of plan of care .
--- NOTE | 2022-08-06 13:30 | PC.NURSE ---
Dr. Ruth at bedside from ICU for admission . patient and family aware of plan of care .
--- NOTE | 2022-08-06 13:55 | W.PM.CCCN ---
History of Present Illness Data of Consult Service Date: 08/06/22 Requesting physician: Paulino Mesa Primary Care Provider: Unknown Physician HPI Mr. Elver Stein is transferred to the ICU this afternoon bec of septic shock. The patient is a 61yo M w PMHx of AFib (on atenolol and Coumadin), HTN, and recent dx of prostate cancer diagnosed in [place]. The patient presents to the hospital last night ambulatory after arriving from [place] few days ago, with complaints of urinary urgency, and chills.? No abd pain, nausea or vomiting, no diarrhea, constipation, edema, orthopnea, PND. On arrival to the ED, the heart rate was 120s to 140s, afib.? He was normotensive.? General physical exam unremarkable. ?Labs notable for WBC count of 5.2, Hb 12, INR of 1.9, magnesium of 1.5, bili of 1.7, AST of 83, ALT of 80, alk-phos of 363.? Troponin and EKG negative. ?U/A showed WBC > 50, large LE. The patient was admitted to Medicine, and treated with Cardizem and ceftriaxone.? His warfarin was continued.? This morning, the patient became hypotensive, with blood pressure dropping into the 80s.? Temperature arthur to 102.2 degrees. ?Lactic acid was 1.7.? The patient was volume resuscitated, and antibiotics were changed to Zosyn and vanco.? The patient remained hypotensive. I saw him in the ED at approximately 13:30.? At that time, the patient looked entirely well.? He was fully alert and oriented, in no distress, thoroughly nontoxic appearing.? Heart rate was 87, in atrial fibrillation.? Blood pressure was 90-99/60.? Patient was breathing easy with a sat of 99% on room air.? Temperature was 98.8 degrees.? There was marked 3cm JVD with the HOB at 20?.? Chest CTA.? Very slight ?epigastric tenderness; no guarding or rebound.? There is no peripheral edema. My bedside ECHOCARDIOGRAM: ?Image quality:? Excellent.? Findings:? Normal LV and RV size and function.? IVC measured 1.75 cm, with about 30% inspiratory collapse. LABORATORY DATA:? White count this morning up to 25, PT 22/1.9, BUN/creatinine down to 15/0.7. IMPRESSION: 1. History of prostate cancer 2. History of hypertension 3. Chronic atrial fibrillation.? Rate is now adequately controlled.? Will continue his Coumadin. 4. Urosepsis with septic shock.? With the patient's jugular venous distension, and reasonably full IVC, I would hold on further fluids.? Continue current antibiotics.? Admit ICU for further monitoring and management.? May need pressors. ADDENDUM at 1900:? Both sets of BCs reported positive for GNRs.? One set also has GPC.? Will assume the latter to be a contaminant.? D/C vanco, change to ceftriaxone 2G daily.? Check ID tomorrow w Micro lab.? Draw repeat BCs tomorrow morning. Critical care time:? 75+ min. [facility] Past Medical History Medical History (Updated 08/06/22 @ 11:25 by John Bustos MD) Atrial fibrillation History of prostate cancer HTN (hypertension), benign Family History Family History (Updated 08/06/22 @ 06:49 by Arjun Dhaliwal MD) Father Prostate cancer Surgical History Surgical History (Updated 08/06/22 @ 06:49 by Arjun Dhaliwal MD) No pertinent past surgical history Social History Social History (Updated 08/06/22 @ 06:49 by Arjun Dhaliwal MD) Alcohol intake: never Patient Tobacco Use Status: Former Tobacco user service: No Meds Allergies Allergy/AdvReac Type Severity Reaction Status Date / Time No Known Allergies Allergy Verified 08/05/22 21:43 Active Medications: Current Medications Acetaminophen (Acetaminophen 325 Mg Tablet) 650 mg PO Q6H PRN PRN Reason: Pain, Mild (Pain Scale 1-3) Last Admin: 08/06/22 08:46 Dose: 650 mg Atenolol (Atenolol 25 Mg Tablet) 25 mg PO BID KAYDEN; Protocol Last Admin: 08/06/22 08:40 Dose: 25 mg Atorvastatin Calcium (Atorvastatin Calcium 10 Mg Tablet) 10 mg PO BEDTIME [facility] Clonazepam (Clonazepam 0.5 Mg Tablet) 0.5 mg PO BEDTIME PRN PRN Reason: Anxiety Cyanocobalamin (Cyanocobalamin (Vitamin B-12) 1,000 Mcg Tablet) 1,000 mcg PO DAILY [facility] Famotidine (Famotidine 20 Mg Tablet) 20 mg PO DAILY [facility] Heparin Sodium (Porcine) (Heparin Sodium,Porcine 5,000 Unit/Ml Vial) 5,000 unit SUBCUT Q12H [facility] Last Admin: 08/06/22 07:02 Dose: 5,000 unit Diltiazem HCl 125 mg/ Sodium (Chloride) 125 mls @ 0 mls/hr IVCONT .Q0M [facility]; Protocol Last Titration: 08/06/22 10:49 Dose: 0 mg/hr, 0 mls/hr Vancomycin HCl 1,000 mg/ (Sodium Chloride) 270 mls @ 270 mls/hr IV Q12H [facility] Piperacillin Sod/Tazobactam (Sod 3.375 gm/ Sodium Chloride) 50 mls @ 100 mls/hr IV Q6H [facility] Last Infusion: 08/06/22 11:38 Dose: Infused Sodium Chloride (Ns) 1,000 mls @ 100 mls/hr IVCONT .Q10H [facility] Last Admin: 08/06/22 11:49 Dose: 100 mls/hr Sodium Chloride (Ns) 1,000 mls @ 999 mls/hr IVCONT .Q1H1M [facility] Stop: 08/06/22 15:45 Ondansetron HCl (Ondansetron Hcl 4 Mg/2 Ml Vial) 4 mg IVPUSH Q8H PRN PRN Reason: Nausea and Vomiting Pharmacy Consult (Consult Rx Perform Med Rec) 1 each MISCELLANE ONCE PRN PRN Reason: Consult order Pharmacy Consult (Consult Rx Vancomycin Dosing) 1 each MISCELLANE DAILY PRN PRN Reason: Consult order Sodium Chloride (0.9 % Sodium Chloride Flush 3 Ml Syringe) 3 ml IVFLUSH QSHIFT [facility] Last Admin: 08/06/22 08:40 Dose: 3 ml Temazepam (Temazepam 15 Mg Capsule) 30 mg PO BEDTIME [facility] Warfarin Sodium (Warfarin Sodium 6 Mg Tablet) 6 mg PO DAILY@1800 [facility] Home Medications Medication Instructions Recorded Confirmed Last Taken Type amlodipine 5 mg tablet 5 mg PO DAILY 08/06/22 08/06/22 Unknown History atenolol 50 mg tablet 50 mg PO DAILY 08/06/22 08/06/22 Unknown History clonazepam 0.5 mg tablet (Klonopin) 0.5 mg PO BEDTIME PRN Anxiety 08/06/22 08/06/22 Unknown History cyanocobalamin (vitamin B-12) 1,000 mcg PO DAILY 08/06/22 08/06/22 Unknown History 1,000 mcg tablet famotidine 20 mg tablet (Pepcid) 20 mg PO DAILY 08/06/22 08/06/22 Unknown History methenamine-m.blue-sod 1 tab PO DAILY 08/06/22 08/06/22 Unknown History phos-p.kina-hyosc 81.6 mg-10.8 mg-40.8 mg tablet (Phosphasal) multivit,Ca,min-iron 8 mg-folic 1 tab PO DAILY 08/06/22 08/06/22 Unknown History acid 200 mcg-lycopene 600 mcg tablet (Centrum Men) simvastatin 20 mg tablet 20 mg PO DAILY 08/06/22 08/06/22 Unknown History temazepam 30 mg capsule 30 mg PO BEDTIME 08/06/22 08/06/22 Unknown History warfarin 6 mg tablet 6 mg PO DAILY 08/06/22 08/06/22 Unknown History Physical Exam Vital Signs: Vital Signs: Last Vital Signs Temp 98.8 F 08/06/22 12:57 Pulse 87 08/06/22 13:22 Resp 16 08/06/22 13:22 BP 89/59 L 08/06/22 13:22 Pulse Ox 97 08/06/22 13:22 O2 Del Method 08/06/22 13:22 BMI result Body Mass Index 21.7 Results Labs CBC & Chem 7: 08/06/22 04:39 08/06/22 04:39 Labs: Short CBC 08/05/22 08/06/22 Range/Units 22:21 04:39 WBC 5.2 25.1 H (4.8-10.8) X10*3/uL Hgb 12.1 L 13.1 L (14.0-18.0) g/dl Hct 33.9 L 37.4 L (42.0-52.0) % Plt Count 235 241 (160-400) X10*3/uL BMP 08/05/22 08/06/22 22:21 04:39 Sodium 139 141 Potassium 3.5 3.6 Chloride 102 102 Carbon Dioxide 24 24 BUN 20 H 15 Creatinine 0.75 0.74 Calcium 8.5 8.7 Liver Function 08/05/22 Range/Units 22:21 Total Bilirubin 1.7 H (0.0-1.0) mg/dL AST 83 H (5-37) U/L ALT 80 H (0-40) U/L Alkaline Phosphatase 363 H (39-117) U/L Albumin 3.4 L (3.5-5.0) g/dL Urine 08/06/22 Range/Units 07:11 Urine Color Yellow Urine Appearance Cloudy Urine pH 6.5 (5.0-9.0) Ur Specific [place] 1.010 (1.005-1.025) Urine Protein Negative (Neg-Trace) mg/dL Urine Glucose (UA) Negative (Negative) mg/dL Critical Care Time Critical Care Time (minutes): 90
--- NOTE | 2022-08-06 14:25 | P.EN_ITS ---
Event Note Date of Service: 08/06/22 Event Note: Patient admitted this morning at 06:30 History of presenting illness Chief Complaint: palpitations, urinary frequency Luxembourgish-speaking, history is obtained with the help of merchandise appraiser 61-year-old male with past medical history of AFib, HTN, reports history of pro state cancer diagnosed in [place] presents to the hospital after arriving from [place] few days ago with complaints of urinary urgency, as well as chills and feeling of trembling all over his body.? Patient reports that he has history of prostate cancer and was supposed to see a urologist in [place] but he came [place] visit his family and will be staying here.? He also reports chest palpitations, some shortness of breath, with no dizziness, no headache, no change in vision.? No abdominal pain nausea or vomiting, no diarrhea constipation, no lower extremity edema, orthopnea PND.? No numbness weakness or tingling.? On arrival to the ED patient heart rate was found to be in the 120s to 140s, otherwise stable Labs are significant for WBC count of 5.2, hemoglobin of 12.1, hematocrit 33.9, INR of 1.9, magnesium of 1.5, bili of 1.7, AST of 83, ALT of 80, alk-phos of 363, labs otherwise unremarkable, UA is pending Patient admitted to medical floor with a diagnosis of AFib with RVR likely related to underlying urinary infection and placed on IV Cardizem drip, PO atenolol and IV antibiotics on arrival patient had no leukocytosis he was afebrile with a normal lactic acid few hours into admission patient ventricular rate bumped up to 170-180 he started shivering noted to have noted to have a temp of 102 blood pressure dropped treated with IV fluid 30 cc/kg , patient had difficulty passing urine therefore consulted Urology Dr. Bustos inserted Branch catheter 450 mL of clear urine was drained, patient blood pressure remained low despite IV fluid bolus of 2.[address] Gongora, he felt patient is fluid overloaded therefore IV fluid discontinued due to persistent low blood pressure patient is being transferred to intensive care unit for close monitor ing of unstable vitals Diagnosis Sepsis due to UTI Urinary retention with recently diagnosed prostate cancer Atrial fibrillation with RVR
--- NOTE | 2022-08-06 14:39 | PC.NURSE ---
pt to go to the icu per drs. mart/nettie. pt/family aware of plan of care. per dr. sheffield- no new orders on fluids/meds to increase b/p at this time. systolic b/p 80's ok at this time. pt can eat a regular diet. pt continues to be asymptomatic.
--- NOTE | 2022-08-06 17:19 | PC.NURSE ---
contacted dr sheffield regarding D/C for naima garcia r/t her rates of 80 since pause of medication since 1050 will continue to pause until admission to ICU per dr palma. medical delivery technician contacted to go over patients questions for his care . patient aware of plan of care and reports feeling better at this time.
--- NOTE | 2022-08-06 20:30 | PC.NURSE ---
Med. not given by day shift (Warfarin). Called ICU to clarify if med. should still be given or if there was any contraindication to administration. Per SHAKIR Sanders, OK to give at this time.
--- NOTE | 2022-08-06 20:35 | PC.NURSE ---
Warfarin not loaded down in ED Pyxis. Contacting nursing mirror fabrication supervisor Trixie to bring medication down from the floors. Awaiting med. at this time
--- NOTE | 2022-08-06 20:41 | PC.NURSE ---
Notified PA re: low BPs
[2022-08-06] MEDS: Atorvastatin Calcium 10 MG TABLET PO (20:43)
[2022-08-06] MEDS: Temazepam 15 MG CAPSULE 30 MG PO (20:43)
--- NOTE | 2022-08-06 20:44 | PC.NURSE ---
21:00 dose Atenolol not given d/t hold parameters of SBP < 90
[2022-08-06] MEDS: cefTRIAXone sodium 2 GM in 0.9 % Sodium Chloride 50 ML IV (20:46)
--- NOTE | 2022-08-06 21:48 | PC.NURSE ---
Second call out to pharmacy re: 18:00 dose Warfarin
--- NOTE | 2022-08-06 21:53 | PC.NURSE ---
PATIENT WAS INCONIENT OF MODERATE AMOUNT OF STOOL ,ZACK CARE GIVEN ,AND LINEN CHANGE ,PATIENT IS RESTING IN BED ,SON AT BEDSIDE .
[2022-08-06] MEDS: Albumin Human 25 % 100 ML IV ×2 (22:18→23:19)
[2022-08-06] MEDS: Warfarin Sodium 6 MG TABLET PO (22:20)
[2022-08-07] VITALS (18 sets, daily range): BP systolic 90–148; BP diastolic 56–90; PULSE 70–108; RESP 12–24; TEMP 36.3–37.6; O2SAT 95–98; BMI 21.9
[2022-08-07 05:31] LABS: Hematocrit 29.3 % (42.0-52.0); Mean Corpuscular HGB Conc 35.2 g/dl (31.0-36.0); Mean Corpuscular Hemoglobin 28.9 pg (27.0-33.0); Mean Corpuscular Volume 82.1 fL (80.0-98.0); Mean Platelet Volume 10.8 fL (9.4-12.4); Platelet Count 196 X10*3/uL (160-400); Red Blood Count 3.57 X10*6/uL (4.60-5.80); Red Cell Distribution Width 14.7 % (11.0-16.0); White Blood Count 18.4 X10*3/uL (4.8-10.8)
[2022-08-07 05:41] LABS: Hemoglobin 10.3 g/dl (14.0-18.0)
[2022-08-07 05:52] LABS: Alanine Aminotransferase 48 U/L (0-40); Albumin Level 3.3 g/dL (3.5-5.0); Alkaline Phosphatase 224 U/L (39-117); Anion Gap 13 (12-20); Aspartate Amino Transferase 31 U/L (5-37); Bilirubin Total 1.7 mg/dL (0.0-1.0); Blood Urea Nitrogen 12 mg/dL (9-16); Calcium 8.2 mg/dL (8.4-10.2); Carbon Dioxide 25 mmol/L (22-29); Chloride 108 mmol/L (96-108); Estimated Glomerular Filt Rate > 60; Glucose Random 109 mg/dL (60-115); Potassium 3.5 mmol/L (3.3-5.1); Sodium 142 mmol/L (135-145); Total Protein 5.8 g/dL (6.5-8.0)
[2022-08-07 05:53] LABS: B Type Natriuretic Peptide 336 pg/mL (<100)
[2022-08-07] MEDS: Albumin Human 25 % 100 ML IV ×4 (06:36→10:45)
[2022-08-07] MEDS: Potassium Phosphate/NS 15 MMOL/250 ML PLAST..BAG 62.5 MMOL IV ×2 (06:37→10:43)
[2022-08-07 08:19] LABS: INTERNATIONAL NORM RATIO 2.1 (0.9-1.1); Prothrombin Time 25.4 SEC (10.0-13.1)
[2022-08-07] MEDS: atenoloL 25 MG TABLET PO ×2 (09:12→22:07)
[2022-08-07] MEDS: Cyanocobalamin (Vitamin B-12) 1,000 MCG TABLET 1000 MCG PO (09:13)
[2022-08-07] MEDS: Famotidine 20 MG TABLET PO (09:13)
[2022-08-07] MEDS: 0.9 % Sodium Chloride Flush 3 ML SYRINGE IVFLUSH ×2 (09:15→16:22)
[2022-08-07] MEDS: Calcium Gluconate/NaCl,Iso-Osm 2 GM/100 ML PLAST..BAG IV (11:38)
--- NOTE | 2022-08-07 14:29 | PM.CCPN ---
Subjective Subjective Date of Service: 08/07/22 Interval History: Mr. Elver Stein was transferred to the ICU this afternoon bec of septic shock. The patient is a 61yo M w PMHx of AFib (on atenolol and Coumadin), HTN, and recent dx of prostate cancer diagnosed in [place]. The patient presented to the hospital on Aug 05 ambulatory after arriving from [place] few days prior, with complaints of urinary urgency, and chills.? On arrival to the ED, the heart rate was 120s to 140s, afib.? He was normotensive.? General physical exam unremarkable.? Labs notable for WBC count of 5.2, Hb 12, INR of 1.9, magnesium of 1.5, bili of 1.7, AST of 83, ALT of 80, alk-phos of 363.? Troponin and EKG negative.? U/A showed WBC > 50, large LE. The patient was admitted to Medicine, and treated with Cardizem and ceftriaxone.? His warfarin was continued.? Yesterday morning, the patient became hypotensive, with BP dropping into the 80s.? Temperature arthur to 102.2 degrees.? WBC arthur to 25, Lactic acid was 1.7, with BUN/creat down to 15/0.7.? The patient was volume resuscitated, and antibiotics were changed to Zosyn and vanco.? The patient remained hypotensive. I saw him in the ED at approximately 13:30.? At that time, the patient looked entirely well.? He was fully alert and oriented, in no distress, thoroughly nontoxic appearing.? Heart rate was 87, in atrial fibrillation.? Blood pressure was 90-99/60.? The patient was breathing easy with a sat of 99% on room air.? Temperature was 98.8 degrees.? There was marked 3cm JVD with the HOB at 20?.? Chest CTA.? Very slight? epigastric tenderness; no guarding or rebound.? There was no peripheral edema. Bedside ECHOCARDIOGRAM showed normal LV and RV size and function.? IVC measured 1.75 cm, with about 30% inspiratory collapse. Blood cultures came back yesterday evening showing Gram-negative rods in both sets, and Gram-positive cocci in one set.? The latter was considered to be a contaminant; the patient was changed back to ceftriaxone, at a dose of 2 G per day.? The patient was admitted to the ICU, and volume resuscitation was continued with 25% albumin. Overnight the patient did well.? He?s had no further fever, and never needed pressors.? This morning he looks well, thoroughly nontoxic.? Fully awake and alert, and asking questions.? Heart rate down to the 70s, atrial fibrillation.? Blood pressure 116/79.? Breathing easy w SpO2 98% on room air.? Still has marked JVD almost to the angle of the mandible at 20?.? Chest is CTA with normal expiratory phase.? Heart rate and rhythm are irregular, soft heart tones, I heard no murmur or gallops.? Abdomen is flat and benign.? No peripheral edema. LABORATORY DATA:? Below.? Notably, white count is down to 18, hemoglobin is down to 10 after volume resuscitation, INR is 2.1, BUN/creatinine are down to 12/0.7.? Phosphorus is 2.0.? BNP is 336. IMPRESSION: 1. History of prostate cancer 2. History of hypertension 3. Chronic atrial fibrillation.? Rate is now adequately controlled.? Continuing his Coumadin and atenelol. 4. Septic shock.? Resolved.? Adequately resuscitated (more than adequately).? No need for further IV fluids. 5 ID:? He is clearly clinically better, white count is down, he is afebrile.? We are waiting for the ID and sensitivities. ?Continue ceftriaxone.? No need for Gram-positive coverage.? Repeat blood cultures were drawn this morning. 6. Hypophosphatemia.? Repleted this morning. Stable for transfer to med-surg.? I will sign out to the hospitalists. Critical Care Time (minutes): 0 Physical Exam Vital Signs: Vital Signs: Last Vital Signs Temp 97.3 F 08/07/22 08:00 Pulse 76 08/07/22 14:00 Resp 20 08/07/22 14:00 BP 116/79 08/07/22 14:00 Pulse Ox 97 08/07/22 14:00 O2 Del Method 08/07/22 14:00 BMI result Body Mass Index 21.9 Objective Data Labs CBC & Chem 7: 08/07/22 05:14 08/07/22 05:14 Labs: Laboratory Results - last 24 hr 08/07/22 08/07/22 08/07/22 05:14 05:14 05:14 WBC 18.4 H RBC 3.57 L D Hgb 10.3 L D Hct 29.3 L D MCV 82.1 MCH 28.9 MCHC 35.2 RDW 14.7 Plt Count 196 MPV 10.8 Absolute Nucleated RBC 0.000 Nucleated RBC % (auto) 0.0 PT INR Sodium 142 Potassium 3.5 Chloride 108 Carbon Dioxide 25 Anion Gap 13 BUN 12 Creatinine 0.73 Estim Creat Clear Calc 90.0 Estimated GFR > 60 Random Glucose 109 Lactic Acid 1.0 Calcium 8.2 L Phosphorus 2.0 L Magnesium 2.0 Total Bilirubin 1.7 H AST 31 D ALT 48 H Alkaline Phosphatase 224 H D B-Natriuretic Peptide Total Protein 5.8 L Albumin 3.3 L 08/07/22 08/07/22 05:14 07:59 WBC RBC Hgb Hct MCV MCH MCHC RDW Plt Count MPV Absolute Nucleated RBC Nucleated RBC % (auto) PT 25.4 H INR 2.1 H Sodium Potassium Chloride Carbon Dioxide Anion Gap BUN Creatinine Estim Creat Clear Calc Estimated GFR Random Glucose Lactic Acid Calcium Phosphorus Magnesium Total Bilirubin AST ALT Alkaline Phosphatase B-Natriuretic Peptide 336 H Total Protein Albumin Microbiology Microbiology Results: Microbiology 08/06/22 11:59 Urine Catheterized - Branch Catheter Urine Culture - Preliminary Culture in progress. 08/06/22 00:00 Urine clean catch - Urine barrow top Urine Culture - Preliminary Gram negative carleen 08/06/22 06:19 Blood - Venous Blood Culture - Preliminary Gram negative carleen Gram positive cocci 08/06/22 06:19 Blood - Venous Blood Culture - Preliminary Gram negative carleen Quality Stroke Does the patient have a stroke diagnosis?: No VTE Prior VTE?: No VTE Risk Level:: Medical - moderate - high VTE Device Contraindication: Treatment Not Indicated VTE Drug Contraindication: N/A - Med Ordered
[2022-08-07] MEDS: Warfarin Sodium 6 MG TABLET PO (18:16)
[2022-08-07] MEDS: Atorvastatin Calcium 10 MG TABLET PO (22:07)
[2022-08-07] MEDS: Temazepam 15 MG CAPSULE 30 MG PO (22:07)
[2022-08-07] MEDS: cefTRIAXone sodium 2 GM in 0.9 % Sodium Chloride 50 ML IV (22:08)
[2022-08-08] MEDS: 0.9 % Sodium Chloride Flush 3 ML SYRINGE IVFLUSH ×2 (00:43→09:56)
[2022-08-08 04:00] VITALS: BP 122/83; PULSE 74; RESP 20; TEMP 37; O2SAT 98
[2022-08-08 06:39] LABS: Hematocrit 34.5 % (42.0-52.0); Hemoglobin 12.1 g/dl (14.0-18.0); Mean Corpuscular HGB Conc 35.1 g/dl (31.0-36.0); Mean Corpuscular Hemoglobin 28.9 pg (27.0-33.0); Mean Corpuscular Volume 82.3 fL (80.0-98.0); Mean Platelet Volume 10.4 fL (9.4-12.4); Platelet Count 242 X10*3/uL (160-400); Red Blood Count 4.19 X10*6/uL (4.60-5.80)
[2022-08-08 06:56] LABS: Anion Gap 15 (12-20); Blood Urea Nitrogen 10 mg/dL (9-16); Calcium 9.3 mg/dL (8.4-10.2); Carbon Dioxide 23 mmol/L (22-29); Chloride 107 mmol/L (96-108); Creatinine Clr Calc Pharmacy 95.3; Estimated Glomerular Filt Rate > 60; Glucose Random 118 mg/dL (60-115); Phosphorus 3.1 mg/dL (2.7-4.5); Potassium 4.1 mmol/L (3.3-5.1); Sodium 141 mmol/L (135-145)
[2022-08-08 06:59] LABS: INTERNATIONAL NORM RATIO 2.1 (0.9-1.1); Prothrombin Time 25.3 SEC (10.0-13.1)
[2022-08-08 07:49] VITALS: BP 124/80; PULSE 77; RESP 20; TEMP 36.5; O2SAT 99
[2022-08-08] MEDS: Cyanocobalamin (Vitamin B-12) 1,000 MCG TABLET 1000 MCG PO (09:55)
[2022-08-08] MEDS: atenoloL 25 MG TABLET PO (09:55)
[2022-08-08] MEDS: Famotidine 20 MG TABLET PO (09:56)
[2022-08-08 11:16] VITALS: BP 126/87; PULSE 87; RESP 20; TEMP 36.6; O2SAT 99
--- NOTE | 2022-08-08 11:59 | MHC.CM.PN ---
Met with patient re AC therapy. He has not seen his new PCP. Pt requires AC therapy. He does not have a PCP to manage coumadin. Spoke w DR Moshe nick Eliquis instead of Coumadin. She will prescribe Eliquis. Eliquis is a Tier 1 med/HNE. The patient is concerned about side effects of the new medication. Notified MD. Requested MD speak w patient or order Pharmacist consult for AC therapy management education and medication education.
--- NOTE | 2022-08-08 13:49 | PM.DS ---
DS: Providers Provider Date of Service: 08/08/22 Date of admission: 08/06/22 03:39 Primary care physician: Unknown Physician Consults: 08/06/22 09:36 Consult to Urology Routine Consulting Provider: John Bustos Reason for consultation: urinary retention Has provider been notified: No 08/08/22 09:37 Consult to Infectious Diseases Routine Consulting Provider: Zara Calles Reason for consultation: gmneg bacteremia Has provider been notified: No DS: Diagnosis Discharge Diagnosis (1) Urinary frequency: Status: Acute (2) Difficult Branch catheter placement: Status: Acute DS: Summary Hospital Course Hospital Course: Date of Service: 08/06/22 Chief Complaint: palpitations, urinary frequency Lao-speaking, history is obtained with the help of release engineer 61-year-old male with past medical history of AFib, HTN, reports history of prostate cancer diagnosed in [place] presents to the hospital after arriving from [place] few days ago with complaints of urinary urgency, as well as chills and feeling of trembling all over his body.? Patient reports that he has history of prostate cancer and was supposed to see a urologist in [place] but he came [place] visit his family and will be staying here.? He also reports chest palpitations, some shortness of breath, with no dizziness, no headache, no change in vision.? No abdominal pain nausea or vomiting, no diarrhea constipation, no lower extremity edema, orthopnea PND.? No numbness weakness or tingling.? On arrival to the ED patient heart rate was found to be in the 120s to 140s, otherwise stable Labs are significant for WBC count of 5.2, hemoglobin of 12.1, hematocrit 33.9, INR of 1.9, magnesium of 1.5, bili of 1.7, AST of 83, ALT of 80, alk-phos of 363, labs otherwise unremarkable, UA is pending Hospital course 61-year-old male with past medical history of atrial fibrillation on atenolol and Coumadin, history of hypertension and recently diagnosed to have prostate cancer in [place] presented to [facility] with complaints of urinary urgency and chills, on arrival to ED patient heart rate was 120s a fair BP was normotensive patient was treated with IV Cardizem drip and placed on IV ceftriaxone with concern for urinary tract infection next morning patient became hypotensive systolic blood pressure dropped to 80s, WBC bumped up to 25,000 patient developed fever 102 lactic acid was 1.7 renal function remains stable patient received 3 units of packed RBC antibiotics were changed to IV Zosyn and vanco patient remained hypotensive therefore case was discussed with power shovel mechanic and patient was transferred to intensive care unit with a diagnosis of septic shock related to urinary tract infection. Septic shock due to UTI Patient initially admitted to medical floor later transferred to ICU due to significant hypotension in ICU patient was monitored closely received IV albumin IV fluids were discontinued since patient was noted to have elevated JVD although had no overt congestive heart failure patient blood culture grew Klebsiella and 1/2 blood culture grew Gram-positive cocci, since patient blood pressure remains stable in ICU he was down graded to intermediate care unit the next day, patient blood pressure remains stable his ventricular rate remains stable, he had no recurrent fevers, patient had difficulty passing urine and nurses were unable to place a Branch catheter therefore urology consult was obtained patient was noted to have meatal stenosis patient was evaluated by Dr. Bustos a Branch catheter was placed patient urine is clear, repeat blood cultures x2 are negative, repeat urine cultures growing Enterococcus/Streptococcus species since patient is hemodynamically stable with no recurrent fevers he is being discharged home on by mouth linezolid and Ceftin for 14 days as per ID recommendation. Urinary retention/recently diagnosed prostate cancer patient has been recommended to continue Branch catheter for 4 weeks and to have outpatient follow-up with Dr. Bustos Atrial fibrillation with RVR on admission patient was noted to have rapid ventricular rate treated with IV Cardizem drip likely due to sepsis now ventricular rate is improved recommended to continue metoprolol, patient was on Coumadin that has been switched to Eliquis since patient has no PCP and will require a PT INR monitoring, that could be avoided by Eliquis Time Spent with Patient Time attestation: Total time spent providing and/or coordinating discharge services: Discharge coordination time: Greater than 30 minutes Quality: Safe Use of Opioids Does Pt have an Active Cancer Diagnosis on the Problem List?: No Quality: Stroke Does the patient have a stroke diagnosis?: No Physical Exam Vital Signs: Vital Signs: Last Vital Signs Temp 97.9 F 08/08/22 11:16 Pulse 87 08/08/22 11:16 Resp 20 08/08/22 11:16 BP 126/87 08/08/22 11:16 Pulse Ox 99 08/08/22 11:16 O2 Del Method 08/08/22 11:16 BMI result Body Mass Index 21.9 Const: Other: General awake alert, resting comfortably in no acute distress. Neck no JVD. CVS irregular rate rhythm, Respiratory lungs clear to auscultation, no respiratory distress, no wheeze, no rhonchi. Gastrointestinal abdomen soft, nontender, bowel sounds audible, no guarding , no rigidity. Extremities no edema. Neuro nonfocal Skin no rash Psych appropriate affect DS: Data Data Completed and Pending Labs on day of discharge: Laboratory Results - last 24 hr 08/08/22 08/08/22 08/08/22 06:15 06:15 06:15 WBC 11.0 H RBC 4.19 L Hgb 12.1 L Hct 34.5 L MCV 82.3 MCH 28.9 MCHC 35.1 RDW 15.0 Plt Count 242 MPV 10.4 Absolute Nucleated RBC 0.000 Nucleated RBC % (auto) 0.0 PT 25.3 H INR 2.1 H Sodium 141 Potassium 4.1 Chloride 107 Carbon Dioxide 23 Anion Gap 15 BUN 10 Creatinine 0.69 Estim Creat Clear Calc 95.3 Estimated GFR > 60 Random Glucose 118 H Calcium 9.3 D Phosphorus 3.1 Preliminary micro results at discharge 08/06/22 11:59 Urine Culture - Preliminary Urine Catheterized - Branch Catheter Enterococcus/Streptococcus sp 08/06/22 06:19 Blood Culture - Preliminary Blood - Venous Klebsiella pneumoniae Gram positive cocci 08/07/22 05:14 Blood Culture - Preliminary Blood - Venous No growth after 24 hours. 08/07/22 05:14 Blood Culture - Preliminary Blood - Venous No growth after 24 hours. Discharge Plan Discharge Patient Disposition: Home, Self-Care Discharge Diagnosis: Septic shock Sepsis due to UTI Atrial fibrillation with RVR Meatal stenosis Referrals: Physician,Unknown J [Primary Care Provider] - 1 Week Discharge Medications: New Eliquis 5 mg tablet 5 mg PO BID Qty: 60 0RF linezolid 600 mg tablet 600 mg PO BID Qty: 28 0RF cefuroxime axetil 500 mg tablet 500 mg PO BID Qty: 28 0RF tamsulosin [Flomax] 0.4 mg capsule 0.4 mg PO BEDTIME Qty: 30 0RF Continued clonazepam [Klonopin] 0.5 mg Tablet 0.5 mg PO BEDTIME PRN (Reason: Anxiety) Label Comments: photos of med bottles on phone, frequency not visualized. will require pharmacy review famotidine [Pepcid] 20 mg Tablet 20 mg PO DAILY Label Comments: photos of med bottles on phone, frequency not visualized. will require pharmacy review temazepam 30 mg Capsule 30 mg PO BEDTIME Label Comments: photos of med bottles on phone, frequency not visualized. will require pharmacy review simvastatin 20 mg Tablet 20 mg PO DAILY Label Comments: photos of med bottles on phone, frequency not visualized. will require pharmacy review atenolol 50 mg Tablet 50 mg PO DAILY Label Comments: photos of med bottles on phone, frequency not visualized. will require pharmacy review cyanocobalamin (vitamin B-12) 1,000 mcg Tablet 1,000 mcg PO DAILY Phosphasal 81.6-10.8-40.8 mg Tablet 1 tab PO DAILY Centrum Men 8 mg iron- 200 mcg-600 mcg Tablet 1 tab PO DAILY Discontinued amlodipine 5 mg Tablet 5 mg PO DAILY Label Comments: photos of med bottles on phone, frequency not visualized. will require pharmacy review warfarin [Coumadin] 6 mg Tablet 6 mg PO DAILY Label Comments: photos of med bottles on phone, frequency not visualized. will require pharmacy review Discharge Orders: Discharge Order (Routine); Ordered 08/08/22 Ordered By: Paulino Mesa Diet: Low fat, low cholesterol Activity on Discharge: As tolerated Stand Alone Forms: Patient Portal Discharge page Care Plan Goals: Take antibiotics as prescribed for 14 days stop Coumadin, start taking Eliquis 1 tablet twice daily from tomorrow 08/09/22 Health Concerns: Continue all home medications as before,except stop Amlodipine Plan of Treatment: Outpatient follow-up with Dr. Bustos from Urology call to make an appointment in 4 weeks continue Branch catheter Outpatient follow-up with primary care physician Assessment: As per discharge summary Patient Instructions: A-fib (Atrial Fibrillation) (ED)
--- NOTE | 2022-08-08 16:35 | P.CNID_ITS ---
History of Present Illness Data of Consult Service Date: 08/08/22 Requesting physician: Paulino Mesa Primary Care Provider: Unknown Physician HPI Reason for consult: bacteremia,sepsis He presents with shortness of breath and tachycardia. He has Klebsiella and enterococcus blood likely and urine. He feels better and wishes to leave. [facility] Past Medical History Medical History (Updated 08/08/22 @ 16:37 by Zara Calles MD) Atrial fibrillation Bacteremia History of prostate cancer HTN (hypertension), benign Family History Family History Father Prostate cancer Family history: reviewed and not pertinent Surgical History Surgical History No pertinent past surgical history Social History Social History Household Members: Children Housing: House Do you presently have visiting nurse or other home services: No Alcohol intake: never Patient Tobacco Use Status: Former Tobacco user service: No Meds Allergies Allergy/AdvReac Type Severity Reaction Status Date / Time No Known Allergies Allergy Verified 08/05/22 21:43 Active Medications: Current Medications Acetaminophen (Acetaminophen 325 Mg Tablet) 650 mg PO Q6H PRN PRN Reason: Pain, Mild (Pain Scale 1-3) Last Admin: 08/06/22 08:46 Dose: 650 mg Atenolol (Atenolol 25 Mg Tablet) 25 mg PO BID KAYDEN; Protocol Last Admin: 08/08/22 09:55 Dose: 25 mg Atorvastatin Calcium (Atorvastatin Calcium 10 Mg Tablet) 10 mg PO BEDTIME KAYDEN Last Admin: 08/07/22 22:07 Dose: 10 mg Clonazepam (Clonazepam 0.5 Mg Tablet) 0.5 mg PO BEDTIME PRN PRN Reason: Anxiety Cyanocobalamin (Cyanocobalamin (Vitamin B-12) 1,000 Mcg Tablet) 1,000 mcg PO DA JAMARI KAYDEN Last Admin: 08/08/22 09:55 Dose: 1,000 mcg Famotidine (Famotidine 20 Mg Tablet) 20 mg PO DAILY [facility] [place] Last Admin: 08/08/22 09:56 Dose: 20 mg Ceftriaxone Sodium 2 gm/ (Sodium Chloride) 50 mls @ 100 mls/hr IV Q24H [facility] Last Infusion: 08/07/22 23:59 Dose: Infused Pharmacy Consult (Consult Rx Perform Med Rec) 1 each MISCELLANE ONCE PRN PRN Reason: Consult order Pharmacy Consult (Consult Rx Vancomycin Dosing) 1 each MISCELLANE DAILY PRN PRN Reason: Consult order Sodium Chloride (0.9 % Sodium Chloride Flush 3 Ml Syringe) 3 ml IVFLUSH QSHIFT [facility] Last Admin: 08/08/22 16:34 Dose: Not Given Temazepam (Temazepam 15 Mg Capsule) 30 mg PO BEDTIME [facility] Last Admin: 08/07/22 22:07 Dose: 30 mg Home Medications Medication Instructions Recorded Confirmed Last Taken Type atenolol 50 mg tablet 50 mg PO DAILY 08/06/22 08/06/22 Unknown History clonazepam 0.5 mg tablet (Klonopin) 0.5 mg PO BEDTIME PRN Anxiety 08/06/22 08/06/22 Unknown History cyanocobalamin (vitamin B-12) 1,000 mcg PO DAILY 08/06/22 08/06/22 Unknown History 1,000 mcg tablet famotidine 20 mg tablet (Pepcid) 20 mg PO DAILY 08/06/22 08/06/22 Unknown History methenamine-m.blue-sod 1 tab PO DAILY 08/06/22 08/06/22 Unknown History phos-p.kina-hyosc 81.6 mg-10.8 mg-40.8 mg tablet (Phosphasal) multivit,Ca,min-iron 8 mg-folic 1 tab PO DAILY 08/06/22 08/06/22 Unknown History acid 200 mcg-lycopene 600 mcg tablet (Centrum Men) simvastatin 20 mg tablet 20 mg PO DAILY 08/06/22 08/06/22 Unknown History temazepam 30 mg capsule 30 mg PO BEDTIME 08/06/22 08/06/22 Unknown History Physical Exam Vital Signs: Vital Signs: Last Vital Signs Temp 97.9 F 08/08/22 11:16 Pulse 87 08/08/22 11:16 Resp 20 08/08/22 11:16 BP 126/87 08/08/22 11:16 Pulse Ox 99 08/08/22 11:16 O2 Del Method 08/08/22 11:16 BMI result Body Mass Index 21.9 Const: General: cooperative HEENT: Head: Yes normal to inspection Face and sinus: Yes normal facial exa m Mouth: Normal oral and palatal mucosa present Teeth and gingiva: dentition normal Eyes: General: appearance normal, both eyes and all related structures Pupils: Equal, round and reactive pupils present Resp: Effort & Inspection: normal respiratory effort Cardio: Rate: regular rate Rhythm: regular rhythm GI: Palpation (GI): Soft to palpation and nontender : General: Yes no CVA tenderness Back/Spine/Pelvis: Back: no CVA tenderness Skin: General skin exam: no rashes or lesions noted Neuro: General: moves all extremities Cranial nerves: Yes Equal, round and reactive pupils present Extrem: General: Yes normal to inspection Psych: Appearance: grossly normal Results Labs CBC & Chem 7: 08/08/22 06:15 08/08/22 06:15 Labs: Short CBC 08/08/22 Range/Units 06:15 WBC 11.0 H (4.8-10.8) X10*3/uL Hgb 12.1 L (14.0-18.0) g/dl Hct 34.5 L (42.0-52.0) % Plt Count 242 (160-400) X10*3/uL BMP 08/08/22 06:15 Sodium 141 Potassium 4.1 Chloride 107 Carbon Dioxide 23 BUN 10 Creatinine 0.69 Calcium 9.3 D Microbiology Microbiology Results: Microbiology 08/06/22 11:59 Urine Catheterized - Branch Catheter Urine Culture - Preliminary Enterococcus/Streptococcus sp 08/06/22 06:19 Blood - Venous Blood Culture - Preliminary Klebsiella pneumoniae Gram positive cocci 08/06/22 06:19 Blood - Venous Blood Culture - Final Klebsiella pneumoniae 08/06/22 00:00 Urine clean catch - Urine barrow top Urine Culture - Final Klebsiella pneumoniae 08/07/22 05:14 Blood - Venous Blood Culture - Preliminary No growth after 24 hours. 08/07/22 05:14 Blood - Venous Blood Culture - Preliminary No growth after 24 hours. Assessment and Plan (1) Bacteremia: Status: Acute He has enterococcus and klebsiella blood and urine He is feeling better Plan Po linezolid 600 mg bid and po Ceftin 500 mg bid for 14 days
== END 2022-08-08 17:13 | disposition home or self-care (01) | DRG 201 ==
LOC: HO.ED 08-06 00:48 → HO.EDOVER 08-06 03:44 → HO.ICU 08-06 23:07 → HO.IMC 08-07 15:00
PROVIDERS: Anesthesiology; Admitting Provider Internal Medicine; Emergency Provider Internal Medicine; Visit Provider Hospitalist
DX: I48.20 Chronic atrial fibrillation, unspecified (principal); R65.21 Severe sepsis with septic shock; A41.9 Sepsis, unspecified organism; E83.39 Other disorders of phosphorus metabolism; C61 Malignant neoplasm of prostate; B96.1 Klebsiella pneumoniae [K. pneumoniae] as the cause of diseases classified elsewhere; B95.2 Enterococcus as the cause of diseases classified elsewhere; N39.0 Urinary tract infection, site not specified; R33.9 Retention of urine, unspecified; I10 Essential (primary) hypertension; Z20.822 Contact with and (suspected) exposure to COVID-19; Z79.01 Long term (current) use of anticoagulants; Z87.891 Personal history of nicotine dependence; Z79.899 Other long term (current) drug therapy
CPT/HCPCS: 36415; 71045; 80048; 80053; 81001; 82077; 83605; 83735; 83880; 84100; 84484; 85025; 85027; 85610; 85730; 87040; 87077; 87086; 87088; 87186; 87205; 87635; 93005; 93306; 99285; C1758; J0610; J0696; J2543; J3370; J3475; P9047

== ENCOUNTER → 2022-08-22 09:12 | Outpatient (BNVA) | payer OTHER, SELFPAY | PROVIDERS: Visit Provider Urology | DX: R33.9 Retention of urine, unspecified (principal) | CPT/HCPCS: 51700; 51798 ==

== ENCOUNTER → 2022-10-17 12:57 | Outpatient (BNVA) | payer OTHER, SELFPAY | PROVIDERS: Visit Provider Urology | DX: R33.9 Retention of urine, unspecified (principal); R97.20 Elevated prostate specific antigen [PSA] | CPT/HCPCS: 51798; 99212 ==

== ENCOUNTER → 2022-12-26 12:43 | Outpatient (BNVA) | payer OTHER, SELFPAY | PROVIDERS: Visit Provider Urology | DX: R97.20 Elevated prostate specific antigen [PSA] (principal) | CPT/HCPCS: 51798; 99212 ==

== ENCOUNTER 2023-02-12 07:02 | Outpatient (REF) | payer OTHER, SELFPAY ==
[2023-02-12 08:05] VITALS: BMI 20.6
[2023-02-12 08:06] VITALS: BP 145/92; PULSE 74; RESP 16; TEMP 36.5; O2SAT 100
--- NOTE | 2023-02-12 08:27 | W.PM.OPN ---
Operative Note Operative Note Date of Service: 02/12/23 Narrative: Preoperative diagnosis: Elevated PSA Postoperative diagnosis: Elevated PSA Procedure: 1. transrectal ultrasound measurement of prostate 2. transrectal ultrasound-guided pudendal nerve block 3. transrectal ultrasound-guided prostate biopsy 12 core Surgeon: Dr. John Bustos Anesthetic: Local Indications for procedure: Elevated PSA 22.6 in [place] Procedure: After informed consent was verified, the patient was brought into the procedure area and lay left-hand side down on the table. Patient identity confirmed. Perioperative antibiotics confirmed. Safety pause time out performed. SONIA performed to dilate rectal sphincter Iodine 10cc with Gel was placed per rectum Ultrasound probe was placed per rectum The prostate was measured in 3 dimensions Total volume equals 50 gm No cystic structures were noted Minor calcifications were noted at the surgical margin The prostate was otherwise homogeneous in nature An ultrasound-guided pudendal nerve block was performed using 10 cc of 1% lidocaine. 8 cc was placed at the base and 2 cc of the apex. A 12 core biopsy was performed with 6 cores each side. Two cores were taken at the apex, mid and base. Cores were spaced between lateral and medial. He tolerated the procedure well. Was able to ambulate to bathroom after 5 minutes. Printed instructions regarding antibiotic use and common side effects such as low-grade temperature, potential infection and bleeding were given Pathology: 12 core prostate biopsy.
[2023-02-12 08:47] VITALS: BP 169/97; PULSE 86; RESP 16; O2SAT 98
== END 2023-02-12 07:03 | disposition home or self-care (01) ==
LOC: HO.MS 07:02
PROVIDERS: PCP Nurse Practitioner Family; Visit Provider Urology
PROC: (CPT 55700; principal; 2023-02-12 08:00)
DX: R97.20 Elevated prostate specific antigen [PSA] (principal)
CPT/HCPCS: 55700; 76942; 88305; 88344

== ENCOUNTER → 2023-02-19 11:23 | Outpatient (BNVA) | payer OTHER, SELFPAY | PROVIDERS: PCP Nurse Practitioner Family; Visit Provider Urology | DX: C61 Malignant neoplasm of prostate (principal) | CPT/HCPCS: 99212 ==

== ENCOUNTER → 2023-02-25 11:00 | Outpatient (REF) | payer MEDICAID, SELFPAY ==
--- NOTE | ~2023-02-25 | NM_ITS ---
EXAMINATION: NM BONE SCAN OF THE WHOLE BODY CLINICAL INFORMATION: Malignant neoplasm of prostate. COMPARISON: No previous bone scan is available for comparison. A radiograph of the chest dated 08/05/2022 is the only radiograph available for comparison. TECHNIQUE: Multiple gamma scintillation camera images of the whole body were performed 2.25 hours following the intravenous administration of 22 mCi Tc-99m MDP. FINDINGS: In the head, there is a small faint focus of increased activity in the posterior molar region of the right side of the mandible, likely due to dental disease. In the thoracic cage and upper extremities, no significant abnormalities are present. In the spine, there is moderately increased activity in the L4 vertebral body, slightly more intensely on the right. In the pelvis, no significant abnormalities are present. In the lower extremities, no significant abnormalities are present. No other definite bony abnormalities are noted. The urinary bladder and faint visualization of both kidneys are noted. NM/NM bone scan whole body IMPRESSION: A nonspecific abnormality in the L4 vertebral body is noted. This could be due to a recent compression fracture or severe degenerative disease, but a solitary metastasis could also be responsible for this nonspecific finding. This could be further characterized with MRI performed without and with intravenous contrast, if clinically indicated.
== END ==
LOC: HO.NUCMED 11:00
PROVIDERS: PCP Nurse Practitioner Family; Visit Provider Urology
DX: C61 Malignant neoplasm of prostate (principal); C79.51 Secondary malignant neoplasm of bone
CPT/HCPCS: 78306; A9503

== ENCOUNTER 2023-03-04 08:07 | Day surgery (SDC) | payer MEDICAID, SELFPAY ==
[2023-03-04 10:47] VITALS: BMI 20.6
[2023-03-04 12:01] VITALS: BP 172/112; PULSE 82; RESP 18; TEMP 36.3; O2SAT 96
[2023-03-04] MEDS: Lactated Ringers 1,000 ML 50 ML IVCONT (12:11)
--- NOTE | 2023-03-04 12:27 | PC.NURSE ---
pt with bp elevated 172/112, repeat 157/[address] alvarez space oar
--- NOTE | 2023-03-04 12:28 | PC.NURSE ---
dr. sheffield anesthesiologist notified of elevated bp, no new orders.
--- NOTE | 2023-03-04 12:57 | MHC.SHP ---
Pre-Procedural Eval Section A Date of Service: 03/04/23 The patient is an INPATIENT: No Changes since office visit: No Cold of Flu in the past 2 weeks, No New Medical Problems, No Changes in Medication and No Patient answered all questions The History & Physical has been completed within 30 days and I have reviewed it.: Yes Section B Chief Complaint: Malignant neoplasm of prostate Allergies: Allergies Allergy/AdvReac Type Severity Reaction Status Date / Time No Known Allergies Allergy Verified 02/19/23 11:34 Plan Diagnosis/Plan: Unchanged (Space Oar with marker seeds) I have reviewed the history and physical and performed a pertinent physical examination on my patient. No changes have occurred unless specified. Time Spent With Patient Time: Total time managing care of this patient today ____ minutes.
--- NOTE | 2023-03-04 13:19 | HO.ANESPROP2 ---
HPI - Anesthesia Eval Consult details Narrative: for spacer OAR PMFSH Active Problems Active Problems: All Active Problems (Updated 02/19/23 @ 12:16 by John Bustos MD) Prostate cancer (Acute) Elevated PSA (Acute) Urinary retention (Acute) Bacteremia (Acute) Past Medical History Medical History Atrial fibrillation Bacteremia History of prostate cancer HTN (hypertension), benign Family History Family History Father Prostate cancer Family history of problems with anesthesia: No Surgical History Surgical History No pertinent past surgical history History of Problems with Anesthesia: No Social History Social History Household Members: Children Housing: House Do you presently have visiting nurse or other home services: No Alcohol intake: never Patient Tobacco Use Status: Former Tobacco user Quit Date: 10 years ago Use of substances other than those prescribed or required for medical reasons: No Are you DNR?: No Advance Directives: No Advance Directives Information Provided: Yes service: No Meds Allergies Allergy/AdvReac Type Severity Reaction Status Date / Time No Known Allergies Allergy Verified 02/19/23 11:34 Home Medications Medication Instructions Recorded Confirmed Last Taken Type atenolol 50 mg tablet 50 mg PO DAILY 08/06/22 03/04/23 03/04/23 History cyanocobalamin (vitamin B-12) 1,000 mcg PO DAILY 08/06/22 03/04/23 Unknown History 1,000 mcg tablet multivit,Ca,min-iron 8 mg-folic 1 tab PO DAILY 08/06/22 03/04/23 Unknown History acid 200 mcg-lycopene 600 mcg tablet (Centrum Men) simvastatin 20 mg tablet 20 mg PO DAILY 08/06/22 02/19/23 Unknown History temazepam 30 mg capsule 30 mg PO BEDTIME 08/06/22 03/04/23 Unknown History atenolol 25 mg tablet 25 mg PO DAILY 02/19/23 03/04/23 Unknown History Exam Exam Date and Time: March 04, 2023 1319 Height,Weight and Vital Signs: Height 5 ft 6.5 in Weight 58.967 kg Last Vital Signs Temp 97.4 F 03/04/23 12:01 Pulse 82 03/04/23 12:01 Resp 18 03/04/23 12:01 BP 172/112 H 03/04/23 12:01 Pulse Ox 96 03/04/23 12:01 O2 Del Method Room Air 03/04/23 12:01 Airway Mallampati Class: I TM Dist: >3cm Neck ROM: Full Heart: ok Lungs: ok Assessment and Plan Assessment Anesthesia Assessment: Anesthesia Plan Discussed and Chart Reviewed Final Anesthetic Review Family History of Problems with Anesthesia: No History of Problems with Anesthesia: No NPO: Yes ASA Class: III Final Preanesthetic Review: No Changes in Pt Med Stat, Meds/Allgs Chart Reviewed, Consent Obtained/Reviewed and Anes Risks/Benef Reviewed Patient Risk: Intermediate Procedure Risk: Low Anesthetic Plan Anesthetic Plan: GA and Agree w/ Assess. and Plan Disposition: Standard PACU
--- NOTE | 2023-03-04 14:05 | P.OP_ITS ---
Operative Note Operative Note Date of Service: 03/04/23 Narrative: Preoperative diagnosis: Prostate cancer Postoperative diagnosis: Prostate cancer Procedure: 1. Transrectal ultrasound-guided perineal visicoil marker seed placement 2. Transrectal ultrasound-guided perineal SpaceOAR gel placement Surgeon: Dr. John Bustos Anesthetic: Sedation Indications for procedure: Prostate Cancer Procedure: After informed consent was verified, the patient was brought into the operating room and anesthesia was performed per protocol. The patient was placed in a modified dorsal lithotomy position. Gel was placed per rectum Ultrasound probe was placed per rectum. The prostate was visualized in sagittal and transverse dimensions. Local anesthetic was infiltrated in the perineal area using 10 cc of lidocaine Visicoil seed markers were placed in a transperineal fashion using ultrasound guidance 1 on the right - 1 toward mid gland. 1 on the left at mid gland. The purpose is for target triangulation. The 2nd part of the procedure was placement of SpaceOAR gel to allow consolidation for radiation delivery. The kit was prepared on the backtable with assembly of the 2 part solution and syringe delivery system. The delivery needle was advanced bevel down in the midline under ultrasound guidance to the apex of the prostate. It was advanced in the plane the prostate from the rectum to the midpoint of the prostate. Location was determined using sagittal and transverse imaging. At the midpoint of the prostate 1 cc of saline was placed to confirm needle position. Further injection saline was placed to confirm spread toward the base of the prostate. Position was confirmed and needle confirmed to be free from tenting of the rectum. With the needle in the confirmed position 10 cc of gel mixture was injected. This was perfformed over a target time of 15-20 seconds to allow for adequate sp read.. Good separation was seen of the rectum from the prostate space running in the midline from the base toward the apex of the prostate. Following completion of the procedure the probe was removed from the rectum. He tolerated the procedure well. He was extubated in the operating room and transferred in stable condition to the recovery area. Pathology none Drains none
[2023-03-04 14:15] VITALS: BP 136/100; PULSE 83; RESP 16; TEMP 36.9; O2SAT 98
[2023-03-04 14:20] VITALS: BP 142/95; PULSE 91; RESP 16; O2SAT 97
[2023-03-04 14:25] VITALS: BP 146/95; PULSE 77; RESP 16; O2SAT 97
[2023-03-04 14:30] VITALS: BP 156/98; PULSE 79; RESP 16; O2SAT 97
[2023-03-04 14:45] VITALS: BP 146/92; PULSE 82; RESP 16; TEMP 36.6; O2SAT 98
== END 2023-03-04 15:24 | disposition home or self-care (01) ==
PROVIDERS: PCP Nurse Practitioner Family; Visit Provider Urology
PROC: (CPT 55876; principal; 2023-03-04 11:00)
DX: C61 Malignant neoplasm of prostate (principal); I10 Essential (primary) hypertension; I48.91 Unspecified atrial fibrillation; Z79.01 Long term (current) use of anticoagulants; Z79.899 Other long term (current) drug therapy
CPT/HCPCS: 55876; 55874; A4648; C1889; J1956; J3010

== ENCOUNTER → 2023-03-25 11:23 | Outpatient (BNVA) | payer MEDICAID, SELFPAY | PROVIDERS: PCP Nurse Practitioner Family; Visit Provider Urology | DX: C61 Malignant neoplasm of prostate (principal) | CPT/HCPCS: 96402; J9217 ==

== ENCOUNTER → 2023-03-29 15:18 | Outpatient (BNVA) | payer MEDICAID, SELFPAY | PROVIDERS: PCP Nurse Practitioner Family; Visit Provider Urology | DX: C61 Malignant neoplasm of prostate (principal) | CPT/HCPCS: 99212 ==

== ENCOUNTER 2023-06-28 15:00 | Outpatient (AMB) | payer MEDICAID, SELFPAY ==
--- NOTE | 2023-06-28 15:10 | MHC.OFFVIS ---
Intake Intake Visit Reasons: Space oar/Radiation- 3 month follow up Intake Note: Patient is present for Follow Up Urology Med: Finasteride, Tamsulosin Antibiotic Allergy: None Blood Thinner: Eliquis [facility] Allergies No Known Allergies Allergy (Verified 03/29/23 15:33) HPI HPI Comments History of Present Illness Details Alex hameed Moldovan-speaking male. He is a patient of Dr. Snyder. He is seen for the following urologic conditions - lower urinary tract symptoms - elevated PSA Moldovan translation provided by qualified clinical medical transcriptionist Accompanied by his son Completed radiation Minimal symptoms Plan for 3 month follow-up lab work Will do family genetics at that visit after they collect names and dates for relatives with cancer Prostate cancer 02/1423 Grade Group 2, high risk by PSA - Initial therapy XRT with 6 months GnRH plus finasteride for 12 months Elevated PSA 22.6 Histologic grade: [place] score: 3+4=7 (left base lateral, left mid medial) 3+3=6 (left base medial, left mid lateral, left apex lateral, left apex medial, right base medial, right base lateral, right apex lateral, right mid lateral) Tumor quantitation: Number cores positive: 10 Total number of cores: 12 % of tissue involved: Approximately 35% of all tissue examined Periprostatic fat inv.: Not identified Seminal vesicle inv.: Not identified Perineural inv.: Present LVI: Not identified Strong family history with 2 brothers and 3 cousins with prostate cancer and father with prostate cancer Mother with uterine cancer Will need genetics at some point Imaging - 02/14 MRI PI-RADS 4 no evidence of HARRIETT - 02/14 bone scan normal 03/17 - SpaceOAR and gold seed marker Lower urinary tract symptoms Retention with over 500 cc in hospital Past voiding trial Current therapy Flomax Add finasteride PFSH Medical History Atrial fibrillation Bacteremia History of prostate cancer HTN (hypertension), benign Surgical History No pertinent past surgical history Family History Father Prostate cancer Social History Household Members: Children Housing: House Do you presently have visiting nurse or other home services: No Alcohol intake: never Patient Tobacco Use Status: Former Tobacco user Quit Date: 10 years ago service: No Review of Systems Const Denies chills and Denies fever(s) Card Reports no additional complaints and Denies syncope Resp Denies cough GI Denies abdominal pain and Denies heartburn Reports as per HPI and Denies change in libido Neuro Denies syncope Psych Denies change in libido Endo Denies change in libido Physical Exam Const General: cooperative, healthy appearing, comfortable and no acute distress Orientation/consciousness: patient oriented x3 HEENT Face and sinus: Yes normal facial exam Mouth: moist mucous membranes Neck Neck: Yes normal visual inspection, Yes full ROM and Yes trachea midline Chest Chest palpation & inspection: normal inspection of the chest Resp Effort & Inspection: normal respiratory effort, able to speak in complete sentences and no respiratory distress GI Inspection: Yes normal to inspection Back/Spine/Pelvis Cervical Spine: normal cervical lordosis Thoracic/Lumbar Spine: thoracic and lumbar spine normal to inspection Skin General skin exam: no rashes or lesions noted Neuro General: patient oriented x3, gait normal, tone normal and moves all extremities Extrem General: Yes normal to inspection and Yes capillary refill normal Assessment & Plan Assessment & Plan (1) Prostate cancer: Comment: Moderate volume, intermediate risk Code(s): C61 - Malignant neoplasm of prostate Plan Three month follow-up lab work Orders: Orders Prostate Specific Antigen 3 Months C61 - Malignant neoplasm of prostate Testosterone, Total 3 Months C61 - Malignant neoplasm of prostate Patient Instructions: Imaging studies, laboratory and physical exam results were discussed and reviewed in detail. No major barriers to patient understanding were identified. An opportunity to ask questions regarding the treatment plan was provided. All questions were answered. The patient expressed understanding and agreement with the above treatment plan. The patient is aware they should contact our office by phone for worsening of their current condition or the appearance of new urologic symptoms. Compliance is encouraged with any medications and followup testing that is ordered. It is a privilege to participate in the urologic care of your patient. If you have any questions or concerns regarding treatment for the above conditions, or other urologic issues, please do not hesitate to contact me. The office telephone contact is [phone]. This note is constructed using voice recognition software. While every effort has been made to ensure accuracy weave room supervisor errors may have been included. Yours sincerely, Dr John Bustos MD, [facility] - Urology Providers of Expert, Compassionate Care for the Genitourinary System Coding Level of Care Code Est Pt Level 3 (36358) Diagnoses Prostate cancer C61
== END 2023-06-28 15:46 | disposition home or self-care (01) ==
PROVIDERS: Visit Provider Urology
DX: C61 Malignant neoplasm of prostate (principal)
CPT/HCPCS: 99213

== ENCOUNTER → 2023-06-28 15:00 | Outpatient (BNVA) | payer MEDICAID, SELFPAY | PROVIDERS: Visit Provider Urology | DX: C61 Malignant neoplasm of prostate (principal) | CPT/HCPCS: 99212 ==

== ENCOUNTER 2023-09-30 08:27 | Outpatient (REF) | payer MEDICARE, MEDICAID, SELFPAY ==
[2023-09-30 09:55] LABS: Prostate Specific Antigen < 0.10 ng/mL (<0.05-4.0)
[2023-10-03 16:23] LABS: Testosterone, Total 9 ng/dL (250-1100)
== END 2023-09-30 08:28 | disposition home or self-care (01) ==
LOC: HO.LAB 08:27
PROVIDERS: Visit Provider Urology
DX: C61 Malignant neoplasm of prostate (principal)
CPT/HCPCS: 36415; 84153; 84403

== ENCOUNTER 2023-11-14 08:50 | Outpatient (AMB) | payer MEDICARE, MEDICAID, SELFPAY ==
--- NOTE | 2023-11-14 08:59 | A.OFFVIS_ITS ---
Intake Intake Visit Reasons: PSA/Testosterone(set) Intake Note: Patient is present for Follow Up Urology Med: Finasteride, Tamsulosin Antibiotic Allergy: None Blood Thinner: Eliquis [facility] Kitchen Utility Associate Required: No Accompanied by: Son Allergies No Known Allergies Allergy (Verified 11/14/23 09:02) Medication List - Last Reconciled 11/14/23 by John Bustos MD apixaban (Eliquis) 5 mg PO BID atenolol 50 mg PO DAILY atenolol 25 mg PO DAILY cyanocobalamin (vitamin B-12) 1,000 mcg PO DAILY finasteride 5 mg PO DAILY 90 days lisinopril 30 mg PO QAM mv,Ca,vaf-ebgk-LJ-lycopene 8 mg iron- 200 mcg-600 mcg (Centrum Men) 1 tab PO DAILY simvastatin 40 mg PO BEDTIME tamsulosin (Flomax) 0.4 mg PO BEDTIME 90 days temazepam 30 mg PO BEDTIME trazodone 100 mg PO BEDTIME PRN HPI HPI Comments History of Present Illness Details Alex hameed Somali-speaking male. He is a patient of Dr. Snyder. He is seen for the following urologic conditions - lower urinary tract symptoms - elevated PSA Somali translation provided by qualified medical assistant dermatology Accompanied by his son Psa 10/17 <0.1 T 9 Minimal symptoms Will do family genetics at some point Prostate cancer 02/1423 Grade Group 2, high risk by PSA - Initial therapy XRT with 6 months GnRH plus finasteride for 12 months 06/16 XRT with 6m GnRH [facility] Elevated PSA 22.6 Histologic grade: [place] score: 3+4=7 (left base lateral, left mid medial) 3+3=6 (left base medial, left mid latera l, left apex lateral, left apex medial, right base medial, right base lateral, right apex lateral, right mid lateral) Tumor quantitation: Number cores positive: 10 Total number of cores: 12 % of tissue involved: Approximately 35% of all tissue examined Periprostatic fat inv.: Not identified Seminal vesicle inv.: Not identified Perineural inv.: Present LVI: Not identified Strong family history with 2 brothers and 3 cousins with prostate cancer and father with prostate cancer Mother with uterine cancer Will need genetics at some point Imaging - 02/14 MRI PI-RADS 4 no evidence of HARRIETT - 02/14 bone scan normal 03/17 - SpaceOAR and gold seed marker Lower urinary tract symptoms Retention with over 500 cc in hospital Past voiding trial Current therapy Flomax Add finasteride PFSH Medical History Atrial fibrillation Bacteremia History of prostate cancer HTN (hypertension), benign Surgical History No pertinent past surgical history Family History Father Prostate cancer Social History Household Members: Children Housing: House Do you presently have visiting nurse or other home services: No Alcohol intake: never Patient Tobacco Use Status: Former Tobacco user Quit Date: 10 years ago service: No Review of Systems Const Denies chills and Denies fever(s) Card Reports no additional complaints and Denies syncope Resp Denies cough GI Denies abdominal pain and Denies heartburn Reports as per HPI and Denies change in libido Neuro Denies syncope Psych Denies change in libido Endo Denies change in libido Physical Exam Const General: cooperative, healthy appearing, comfortable and no acute distress Orientation/consciousness: patient oriented x3 HEENT Face and sinus: Yes normal facial exam Mouth: moist mucous membranes Neck Neck: Yes normal visual inspection, Yes full ROM and Yes trachea midline Chest Chest palpation & inspection: normal inspection of the chest Resp Effort & Inspection: normal respiratory effort, able to speak in complete sentences and no respiratory distress GI Inspection: Yes normal to inspection Back/Spine/Pelvis Cervical Spine: normal cervical lordosis Thoracic/Lumbar Spine: thoracic and lumbar spine normal to inspection Skin General skin exam: no rashes or lesions noted Neuro General: patient oriented x3, gait normal, tone normal and moves all extremities Extrem General: Yes normal to inspection and Yes capillary refill normal Assessment & Plan Assessment & Plan (1) Prostate cancer: Comment: Moderate volume, intermediate risk Code(s): C61 - Malignant neoplasm of prostate Plan Refer oncology for genetics Orders: Orders Testosterone, Total 3 Months C61 - Malignant neoplasm of prostate Prostate Specific Antigen 3 Months C61 - Malignant neoplasm of prostate Medications: Refilled finasteride 5 mg PO DAILY 90 tabs 1RF 90 days N13.8 - Other obstructive and reflux uropathy, N40.1 - Benign prostatic hyperplasia with lower urinary tract symptoms, R33.9 - Retention of urine, unspecified, R97.20 - Elevated prostate specific antigen [PSA] tamsulosin (Flomax) 0.4 mg PO BEDTIME 90 caps 1RF 90 days C61 - Malignant neoplasm of prostate Patient Instructions: Imaging studies, laboratory and physical exam results were discussed and reviewed in detail. No major barriers to patient understanding were identified. An opportunity to ask questions regarding the treatment plan was provided. All questions were answered. The patient expressed understanding and agreement with the above treatment plan. The patient is aware they should contact our office by phone for worsening of their current condition or the appearance of new urologic symptoms. Compliance is encouraged with any medications and followup testing that is ordered. It is a privilege to participate in the urologic care of your patient. If you have any questions or concerns regarding treatment for the above conditions, or other urologic issues, please do not hesitate to contact me. The office telephone contact is [phone]. This note is constructed using voice recognition software. While every effort has been made to ensure accuracy automotive wholesale parts advisor errors may have been included. Yours sincerely, Dr John Bustos MD, [facility] - Urology Providers of Expert, Compassionate Care for the Genitourinary System Coding Level of Care Code Est Pt Level 3 (62393) Diagnoses Prostate cancer C61
== END 2023-11-14 09:14 | disposition home or self-care (01) ==
PROVIDERS: PCP Nurse Practitioner Family; Visit Provider Urology
DX: C61 Malignant neoplasm of prostate (principal)
CPT/HCPCS: 99213

== ENCOUNTER → 2023-11-14 08:50 | Outpatient (BNVA) | payer MEDICARE, MEDICAID, SELFPAY | PROVIDERS: PCP Nurse Practitioner Family; Visit Provider Urology | DX: C61 Malignant neoplasm of prostate (principal) | CPT/HCPCS: 99212 ==

== ENCOUNTER 2024-02-11 08:19 | Outpatient (REF) | payer MEDICARE, MEDICAID, SELFPAY ==
[2024-02-11 09:25] LABS: Prostate Specific Antigen 0.25 ng/mL (<0.05-4.0)
[2024-02-16 14:34] LABS: Testosterone, Total 791 ng/dL (250-1100)
== END 2024-02-11 08:20 | disposition home or self-care (01) ==
LOC: HO.LAB 08:19
PROVIDERS: Visit Provider Urology
DX: C61 Malignant neoplasm of prostate (principal)
CPT/HCPCS: 36415; 84153; 84403

== ENCOUNTER 2024-02-18 13:50 | Outpatient (AMB) | payer MEDICARE, SELFPAY ==
--- NOTE | 2024-02-18 13:50 | MHC.OFFVIS ---
Intake Intake Visit Reasons: 3M PSA/Testosterone(set) Intake Note: Patient is Present for Telephone Follow Up Urology Med: Finasteride, Tamsulosin Antibiotic Allergy: None Blood Thinner: Eliquis Sewage Disposal Engineer Required: Yes Sewage Disposal Engineer Language: Kittitian Allergies No Known Allergies Allergy (Verified 02/18/24 13:52) Medication List - Last Reconciled 02/18/24 by John Bustos MD apixaban (Eliquis) 5 mg PO BID atenolol 50 mg PO DAILY atenolol 25 mg PO DAILY cyanocobalamin (vitamin B-12) 1,000 mcg PO DAILY finasteride 5 mg PO DAILY 90 days lisinopril 30 mg PO QAM mv,Ca,dfg-nsag-RW-lycopene 8 mg iron- 200 mcg-600 mcg (Centrum Men) 1 tab PO DAILY simvastatin 40 mg PO BEDTIME tamsulosin (Flomax) 0.4 mg PO BEDTIME 90 days temazepam 30 mg PO BEDTIME trazodone 100 mg PO BEDTIME PRN HPI HPI Comments History of Present Illness Details Alex hameed Kittitian-speaking male. He is a patient of Dr. Snyder. He is seen for the following urologic conditions - lower urinary tract symptoms - elevated PSA Telemedicine Evaluation 15 min Consultation [email or web address] Video attempted Kittitian translation provided by qualified medical artist PSA controlled Testosterone recovered Minimal issues with urinary control 4 month follow-up PSA Remain on finasteride Psa 10/17 <0.1 T 9, 02/15 0.25 T 790 Minimal symptoms Will do family genetics at some point Prostate cancer 02/1423 Grade Group 2, high risk by PSA - Initial therapy XRT with 6 months GnRH plus finasteride for 12 months 06/16 XRT with 6m GnRH [facility] Elevated PSA 22.6 Histologic grade: [place] score: 3+4=7 (left base lateral, left mid medial) 3+3=6 (left base medial, left mid lateral, left apex lateral, left apex medial, right base medial, right base lateral, right apex lateral, right mid lateral) Tumor quantitation: Number cores positive: 10 Total number of cores: 12 % of tissue involved: Approximately 35% of all tissue examined Periprostatic fat inv.: Not identified Seminal vesicle inv.: Not identified Perineural inv.: Present LVI: Not identified Strong family history with 2 brothers and 3 cousins with prostate cancer and father with prostate cancer Mother with uterine cancer Will need genetics at some point Imaging - 02/14 MRI PI-RADS 4 no evidence of HARRIETT - 02/14 bone scan normal 03/17 - SpaceOAR and gold seed marker Lower urinary tract symptoms Retention with over 500 cc in hospital Past voiding trial Current therapy Flomax Add finasteride PFSH Medical History Bacteremia History of prostate cancer HTN (hypertension), benign Atrial fibrillation Surgical History No pertinent past surgical history Family History Father Prostate cancer Social History Household Members: Children Housing: House Do you presently have visiting nurse or other home services: No Alcohol intake: never Patient Tobacco Use Status: Former Tobacco user Quit Date: 10 years ago service: No Review of Systems Const All systems reviewed & are unremarkable except as noted in HPI and below Reports no additional complaints Resp Reports no additional complaints GI Reports no additional complaints Reports as per HPI Musc Reports no additional complaints Physical Exam Telemedicine evaluation Appropriate responses Regular breathing rate and rhythm HEENT Head: Yes normal to inspection Ears: hearing grossly normal bilaterally Eyes General: appearance normal, both eyes and all related structures Neck Neck: Yes normal visual inspection Chest Chest palpation & inspection: normal inspection of the chest Resp Effort & Inspection: normal respiratory effort and able to speak in complete sentences Assessment & Plan Assessment & Plan (1) Prostate cancer: Comment: Moderate volume, intermediate risk Code(s): C61 - Malignant neoplasm of prostate Plan Current good control Orders: Orders Prostate Specific Antigen 4 Months C61 - Malignant neoplasm of prostate Patient Instructions: Imaging studies, laboratory and physical exam results were discussed and reviewed in detail. No major barriers to patient understanding were identified. An opportunity to ask questions regarding the treatment plan was provided. All questions were answered. The patient expressed understanding and agreement with the above treatment plan. The patient is aware they should contact our office by phone for worsening of their current condition or the appearance of new urologic symptoms. Compliance is encouraged with any medications and followup testing that is ordered. It is a privilege to participate in the urologic care of your patient. If you have any questions or concerns regarding treatment for the above conditions, or other urologic issues, please do not hesitate to contact me. The office telephone contact is [phone]. This note is constructed using voice recognition software. While every effort has been made to ensure accuracy feather curling machine operator errors may have been included. Yours sincerely, Dr John Bustos MD, [facility] - Urology Providers of Expert, Compassionate Care for the Genitourinary System Telehealth Telehealth Location of provider rendering services: practice address Location of patient: address on file Patient Identification confirmed using: Name, : Yes Telehealth method: video Patient verbally consented to treatment: Yes Patient verbally consented to billing insurance company: Yes Patient informed of any privacy concerns related to visit: Yes Coding Level of Care Code Tele Est Pt Level 3 (28689) Diagnoses Prostate cancer C61
== END 2024-02-18 15:15 | disposition home or self-care (01) ==
LOC: HO.HUSH 13:50
PROVIDERS: PCP Nurse Practitioner Family; Visit Provider Urology
DX: C61 Malignant neoplasm of prostate (principal)
CPT/HCPCS: 99213

== ENCOUNTER → 2024-02-18 13:50 | Outpatient (BNVA) | payer MEDICAID, SELFPAY | PROVIDERS: PCP Nurse Practitioner Family; Visit Provider Urology ==

== ENCOUNTER 2024-06-19 08:23 | Outpatient (REF) | payer MEDICARE, MEDICAID, SELFPAY ==
[2024-06-19 09:45] LABS: Prostate Specific Antigen < 0.10 ng/mL (<0.05-4.0)
== END 2024-06-19 08:24 | disposition home or self-care (01) ==
LOC: HO.LAB 08:23
PROVIDERS: PCP Nurse Practitioner Family; Visit Provider Urology
DX: C61 Malignant neoplasm of prostate (principal); Z12.5 Encounter for screening for malignant neoplasm of prostate
CPT/HCPCS: 36415; 84153

== ENCOUNTER 2024-06-23 14:31 | Outpatient (AMB) | payer MEDICARE, MEDICAID, SELFPAY ==
--- NOTE | 2024-06-23 14:36 | MHC.OFFVIS ---
Intake Visit Reasons: 4M Follow Up- PSA(set) Intake Note: Patient is Present for 4M Follow Up/PSA Urology Med: Finasteride, Tamsulosin,VITAMIN B-12 Antibiotic Allergy: None Blood Thinner: Eliquis Automatic Lehr Operator Required: Yes Automatic Lehr Operator Language: Georgian Allergies No Known Allergies Allergy (Verified 06/23/24 14:38) HPI Comments Details: Alex hameed Georgian-speaking male. He is a patient of Dr. Snyder. He is seen for the following urologic conditions - lower urinary tract symptoms - elevated PSA Georgian translation provided by qualified medical staff director PSA not detected Minimal issues with urinary control 4 month follow-up PSA Remain on finasteride Psa 10/17 <0.1 T 9, 02/15 0.25 T 790, 06/17 <0.1 Will do family genetics at some point Prostate cancer 02/1423 Grade Group 2, high risk by PSA - Initial therapy XRT with 6 months GnRH plus finasteride for 12 months 06/16 XRT with 6m GnRH [facility] Elevated PSA 22.6 Histologic grade: [place] score: 3+4=7 (left base lateral, left mid medial) 3+3=6 (left base medial, left mid lateral, left apex lateral, left apex medial, right base medial, right base lateral, right apex lateral, right mid lateral) Tumor quantitation: Number cores positive: 10 Total number of cores: 12 % of tissue involved: Approximately 35% of all tissue examined Periprostatic fat inv.: Not identified Seminal vesicle inv.: Not identified Perineural inv.: Present LVI: Not identified Strong family history with 2 brothers and 3 cousins with prostate cancer and father with prostate cancer Mother with uterine cancer Will need genetics at some point Imaging - 02/14 MRI PI-RADS 4 no evidence of HARRIETT - 02/14 bone scan normal 03/17 - Space[facility] and gold seed marker Lower urinary tract symptoms Retention with over 500 cc in hospital Past voiding trial Current therapy Flomax Add finasteride PFSH Medical History Bacteremia History of prostate cancer HTN (hypertension), benign Atrial fibrillation Surgical History No pertinent past surgical history Family History Father Prostate cancer Social History Household Members: Children Housing: House Do you presently have visiting nurse or other home services: No Alcohol intake: never Patient Tobacco Use Status: Former Tobacco user service: No Review of Systems Const Denies chills and Denies fever(s) Card Reports no additional complaints and Denies syncope Resp Denies cough GI Denies abdominal pain and Denies heartburn Reports as per HPI and Denies change in libido Neuro Denies syncope Psych Denies change in libido Endo Denies change in libido Physical Exam Const General: cooperative, healthy appearing, comfortable and no acute distress Orientation/consciousness: patient oriented x3 HEENT Face and sinus: Yes normal facial exam Mouth: moist mucous membranes Neck Neck: Yes normal visual inspection, Yes full ROM and Yes trachea midline Chest Chest palpation & inspection: normal inspection of the chest Resp Effort & Inspection: normal respiratory effort, able to speak in complete sentences and no respiratory distress GI Inspection: Yes normal to inspection Back/Spine/Pelvis Cervical Spine: normal cervical lordosis Thoracic/Lumbar Spine: thoracic and lumbar spine normal to inspection Skin General skin exam: no rashes or lesions noted Neuro General: patient oriented x3, gait normal, tone normal and moves all extremities Extrem General: Yes normal to inspection and Yes capillary refill normal Assessment & Plan Assessment & Plan (1) Prostate cancer: Comment: Moderate volume, intermediate risk Code(s): C61 - Malignant neoplasm of prostate Category: Medical (2) Urinary retention: Code(s): R33.9 - Retention of urine, unspecified Category: Medical Plan 4m f/u PSA Orders: Orders Prostate Specific Antigen 4 Months C61 - Malignant neoplasm of prostate Patient Instructions: Imaging studies, laboratory and physical exam results were discussed and reviewed in detail. No major barriers to patient understanding were identified. An opportunity to ask questions regarding the treatment plan was provided. All questions were answered. The patient expressed understanding and agreement with the above treatment plan. The patient is aware they should contact our office by phone for worsening of their current condition or the appearance of new urologic symptoms. Compliance is encouraged with any medications and followup testing that is ordered. It is a privilege to participate in the urologic care of your patient. If you have any questions or concerns regarding treatment for the above conditions, or other urologic issues, please do not hesitate to contact me. The office telephone contact is [phone]. This note is constructed using voice recognition software. While every effort has been made to ensure accuracy on site wastewater systems technician errors may have been included. Yours sincerely, Dr John Bustos MD, [facility] - Urology Providers of Expert, Compassionate Care for the Genitourinary System Coding Level of Care Code Est Pt Level 3 (48486) Diagnoses Prostate cancer C61 Urinary retention R33.9
== END 2024-06-23 14:57 | disposition home or self-care (01) ==
PROVIDERS: PCP Nurse Practitioner Family; Visit Provider Urology
DX: C61 Malignant neoplasm of prostate (principal); R33.9 Retention of urine, unspecified
CPT/HCPCS: 99213

== ENCOUNTER → 2024-06-23 14:31 | Outpatient (BNVA) | payer MEDICARE, MEDICAID, SELFPAY | PROVIDERS: PCP Nurse Practitioner Family; Visit Provider Urology | DX: C61 Malignant neoplasm of prostate (principal); R33.9 Retention of urine, unspecified | CPT/HCPCS: 99212 ==

== ENCOUNTER 2024-10-15 08:47 | Outpatient (REF) | payer MEDICARE, MEDICAID, SELFPAY ==
[2024-10-15 10:32] LABS: Prostate Specific Antigen 0.11 ng/mL (<0.05-4.0)
== END 2024-10-15 08:48 | disposition home or self-care (01) ==
LOC: HO.LAB 08:47
PROVIDERS: Visit Provider Urology
DX: C61 Malignant neoplasm of prostate (principal); Z12.5 Encounter for screening for malignant neoplasm of prostate
CPT/HCPCS: 36415; 84153

== ENCOUNTER 2024-10-21 11:39 | Outpatient (AMB) | payer MEDICARE, MEDICAID, SELFPAY ==
--- NOTE | 2024-10-21 11:54 | MHC.OFFVIS ---
Intake Visit Reasons: 4m/PSA(set) Intake Note: Patient is Present for Follow Up PSA Urology Medication: Finasteride Antibiotic Allergies: None Blood Thinners: Eliquis Recent PSA: 10/15/2024 0.11 Project Structural Engineer Required: Yes Project Structural Engineer Language: Kyrgyz Accompanied by: Self / Same As Patient Allergies No Known Allergies Allergy (Verified 10/21/24 11:56) HPI Comments Details: Alex hameed Kyrgyz-speaking male. He is a patient of Dr. Snyder. He is seen for the following urologic conditions - lower urinary tract symptoms - elevated PSA Kyrgyz translation provided by qualified biomedical engineering aide Slight rise in PSA consistent with fade of hormone effect PSA 10/17 <0.1 T 9, 02/15 0.25 T 790, 06/17 <0.1, 10/18 0.1 Will do family genetics at some point Continue Q 4 month follow-up till 2 years post therapy Prostate cancer 02/1423 Grade Group 2, high risk by PSA - Initial therapy XRT with 6 months GnRH plus finasteride for 12 months 06/16 XRT with 6m GnRH [facility] Elevated PSA 22.6 Histologic grade: Oswaldo score: 3+4=7 (left base lateral, left mid medial) 3+3=6 (left base medial, left mid lateral, left apex lateral, left apex medial, right base medial, right base lateral, right apex lateral, right mid lateral) Tumor quantitation: Number cores positive: 10 Total number of cores: 12 % of tissue involved: Approximately 35% of all tissue examined Periprostatic fat inv.: Not identified Seminal vesicle inv.: Not identified Perineural inv.: Present LVI: Not identified Strong family history with 2 brothers and 3 cousins with prostate cancer and father with prostate cancer Mother with uterine cancer Will need genetics at some point Imaging - 02/14 MRI PI-RADS 4 no evidence of HARRIETT - 02/14 bone scan normal 03/17 - Space[facility]AR and gold seed marker Lower urinary tract symptoms Retention with over 500 cc in hospital Past voiding trial Current therapy Flomax Add finasteride PFSH Medical History Bacteremia History of prostate cancer HTN (hypertension), benign Atrial fibrillation Surgical History No pertinent past surgical history Family History Father Prostate cancer Social History Household Members: Children Housing: House Do you presently have visiting nurse or other home services: No Alcohol intake: never Patient Tobacco Use Status: Former Tobacco user service: No Review of Systems Const Denies chills and Denies fever(s) Card Reports no additional complaints and Denies syncope Resp Denies cough GI Denies abdominal pain and Denies heartburn Reports as per HPI and Denies change in libido Neuro Denies syncope Psych Denies change in libido Endo Denies change in libido Physical Exam Const General: cooperative, healthy appearing, comfortable and no acute distress Orientation/consciousness: patient oriented x3 HEENT Face and sinus: Yes normal facial exam Mouth: moist mucous membranes Neck Neck: Yes normal visual inspection, Yes full ROM and Yes trachea midline Chest Chest palpation & inspection: normal inspection of the chest Resp Effort & Inspection: normal respiratory effort, able to speak in complete sentences and no respiratory distress GI Inspection: Yes normal to inspection Back/Spine/Pelvis Cervical Spine: normal cervical lordosis Thoracic/Lumbar Spine: thoracic and lumbar spine normal to inspection Skin General skin exam: no rashes or lesions noted Neuro General: patient oriented x3, gait normal, tone normal and moves all extremities Extrem General: Yes normal to inspection and Yes capillary refill normal Assessment & Plan Assessment & Plan (1) Prostate cancer: Comment: Moderate volume, intermediate risk Code(s): C61 - Malignant neoplasm of prostate Category: Medical Plan Q.4 month surveillance Orders: Orders Prostate Specific Antigen 4 Months C61 - Malignant neoplasm of prostate Patient Instructions: Imaging studies, laboratory and physical exam results were discussed and reviewed in detail. No major barriers to patient understanding were identified. An opportunity to ask questions regarding the treatment plan was provided. All questions were answered. The patient expressed understanding and agreement with the above treatment plan. The patient is aware they should contact our office by phone for worsening of their current condition or the appearance of new urologic symptoms. Compliance is encouraged with any medications and followup testing that is ordered. It is a privilege to participate in the urologic care of your patient. If you have any questions or concerns regarding treatment for the above conditions, or other urologic issues, please do not hesitate to contact me. The office telephone contact is [phone]. This note is constructed using voice recognition software. While every effort has been made to ensure accuracy wax pumper errors may have been included. Yours sincerely, Dr John Bustos MD, [facility] - Urology Providers of Expert, Compassionate Care for the Genitourinary System Coding Level of Care Code Est Pt Level 3 (03691) Diagnoses Prostate cancer C61
== END 2024-10-21 12:09 | disposition home or self-care (01) ==
PROVIDERS: PCP Nurse Practitioner Family; Visit Provider Urology
DX: C61 Malignant neoplasm of prostate (principal)
CPT/HCPCS: 99213

== ENCOUNTER → 2024-10-21 11:39 | Outpatient (BNVA) | payer MEDICARE, MEDICAID, SELFPAY | PROVIDERS: PCP Nurse Practitioner Family; Visit Provider Urology | DX: C61 Malignant neoplasm of prostate (principal) | CPT/HCPCS: 99212 ==

== ENCOUNTER 2025-02-03 08:50 | Outpatient (REF) | payer MEDICARE, MEDICAID, SELFPAY ==
--- OUTSIDE RECORDS SUMMARY | 2025-02-03 09:25 | XMS_ITS ---
Author Organization [facility] Address [address] [address] Care Team Providers Care Golf Course Keeper Name Role Phone IrvinsaraMelly bill COPRA PROCESSOR Primary Care Provider [phone] [id number] [facility] Program Status:Enrolled (Active) Start date:04/15/2023 Enrollment date:04/15/2023 Case Team Name Relationship Phone Shyla Burrows LPN (Responsible Staff) [phone] Continued Care and Services Coordination
[2025-02-03 10:43] LABS: Prostate Specific Antigen 0.49 ng/mL (<0.05-4.0)
== END 2025-02-03 08:51 | disposition home or self-care (01) ==
LOC: HO.LAB 08:50
PROVIDERS: PCP Nurse Practitioner Family; Visit Provider Urology
DX: C61 Malignant neoplasm of prostate (principal); Z12.5 Encounter for screening for malignant neoplasm of prostate
CPT/HCPCS: 36415; 84153

== ENCOUNTER 2025-02-11 10:27 | Outpatient (AMB) | payer MEDICARE, MEDICAID, SELFPAY ==
--- NOTE | 2025-02-11 10:28 | A.OFFVIS_ITS ---
Intake Visit Reasons: 4Month PSA Intake Note: Patient is present for 4M/PSA Urology Medication:NONE Antibiotic Allergy:NONE Blood Thinner:APIXABAN Tester Electronic Scale Required: Yes Allergies No Known Allergies Allergy (Verified 02/11/25 10:28) HPI Comments Details: Alex hameed Burkinan-speaking male. He is a patient of Dr. Snyder. He is seen for the following urologic conditions - lower urinary tract symptoms - elevated PSA Telemedicine Evaluation 15 min Consultation [employer] Burkinan translation provided by qualified forensic medical examiner PSA 0.5. Slow rise. Failure would be proximally 2.0 Continue to review every 4 months PSA 10/17 <0.1 T 9, 02/15 0.25 T 790, 06/17 <0.1, 10/18 0.1, 01/27 0.5 Will do family genetics at some point Prostate cancer 02/1423 Grade Group 2, high risk by PSA - Initial therapy XRT with 6 months GnRH plus finasteride for 12 months 06/16 XRT with 6m GnRH [facility] Elevated PSA 22.6 Histologic grade: [place] score: 3+4=7 (left base lateral, left mid medial) 3+3=6 (left base medial, left mid lateral, left apex lateral, left apex medial, right base medial, right base lateral, right apex lateral, right mid lateral) Tumor quantitation: Number cores positive: 10 Total number of cores: 12 % of tissue involved: Approximately 35% of all tissue examined Periprostatic fat inv.: Not identified Seminal vesicle inv.: Not identified Perineural inv.: Present LVI: Not identified Strong family history with 2 brothers and 3 cousins with prostate cancer and father with prostate cancer Mother with uterine cancer Will need genetics at some point Imaging - 02/14 MRI PI-RADS 4 no evidence of HARRIETT - 02/14 bone scan normal 03/17 - Space[facility] and gold seed marker Lower urinary tract symptoms Retention with over 500 cc in hospital Past voiding trial Current therapy Flomax PFSH Medical History Bacteremia History of prostate cancer HTN (hypertension), benign Atrial fibrillation Surgical History No pertinent past surgical history Family History Father Prostate cancer Social History Household Members: Children Housing: House Do you presently have visiting nurse or other home services: No Alcohol intake: never Patient Tobacco Use Status: Former Tobacco user service: No Review of Systems Const All systems reviewed & are unremarkable except as noted in HPI and below Reports no additional complaints Resp Reports no additional complaints GI Reports no additional complaints Reports as per HPI Musc Reports no additional complaints Physical Exam Telemedicine evaluation Appropriate responses Regular breathing rate and rhythm HEENT Head: Yes normal to inspection Ears: hearing grossly normal bilaterally Eyes General: appearance normal, both eyes and all related structures Neck Neck: Yes normal visual inspection Chest Chest palpation & inspection: normal inspection of the chest Resp Effort & Inspection: normal respiratory effort and able to speak in complete sentences Telehealth Telehealth Location of provider rendering services: practice address Location of patient: address on file Patient Identification confirmed using: Name, : Yes Telehealth method: voice only Patient verbally consented to treatment: Yes Patient verbally consented to billing insurance company: Yes Patient informed of any privacy concerns related to visit: Yes Assessment & Plan Assessment & Plan (1) Prostate cancer: Comment: Moderate volume, intermediate risk Code(s): C61 - Malignant neoplasm of prostate Category: Medical Plan Four month follow-up testosterone a PSA Orders: Orders Testosterone, Total 4 Months C61 - Malignant neoplasm of prostate Prostate Specific Antigen 4 Months C61 - Malignant neoplasm of prostate Patient Instructions: This note is constructed using voice recognition software. While every effort has been made to ensure accuracy balance assembler errors may have been included. Imaging studies, laboratory and physical exam results were discussed and reviewed in detail. No major barriers to patient understanding were identified. An opportunity to ask questions regarding the treatment plan was provided. All questions were answered. The patient expressed understanding and agreement with the above treatment plan. The patient is aware they should contact our office by phone for worsening of their current condition or the appearance of new urologic symptoms. Compliance is encouraged with any medications and followup testing that is ordered. It is a privilege to participate in the urologic care of your patient. If you have any questions or concerns regarding treatment for the above conditions, or other urologic issues, please do not hesitate to contact me. The office telephone contact is [phone]. Sincerely, Dr John Bustos MD, [facility] - Urology Compassionate Specialist Care for the Genitourinary System Coding Level of Care Code Tele Est Pt Level 3 (17485) Complex EM visit Add On G2211 Diagnoses Prostate cancer C61
== END 2025-02-11 11:20 | disposition home or self-care (01) ==
LOC: HO.HUSH 10:27
PROVIDERS: PCP Nurse Practitioner Family; Visit Provider Urology
DX: C61 Malignant neoplasm of prostate (principal)
CPT/HCPCS: 99213; G2211

== ENCOUNTER → 2025-02-11 10:27 | Outpatient (BNVA) | payer MEDICARE, MEDICAID, SELFPAY | PROVIDERS: PCP Nurse Practitioner Family; Visit Provider Urology ==

== ENCOUNTER 2025-06-29 09:03 | Outpatient (REF) | payer OTHER, SELFPAY ==
--- OUTSIDE RECORDS SUMMARY | 2025-06-29 09:23 | XMS_ITS ---
Author Organization [facility] Address [address] [address] Care Team Providers Care Innersole Maker Name Role Phone IrvinsaraMelly bill HEAD WELL PULLER Primary Care Provider [phone] SA38 [facility] Program Status:Enrolled (Active) Start date:04/15/2023 Enrollment date:04/15/2023 Case Team Name Relationship Phone Shyla Burrows LPN(Responsible Staff) [phone] Continued Care and Services Coordination
[2025-06-29 10:27] LABS: Prostate Specific Antigen 0.38 ng/mL (<0.05-4.0)
== END 2025-06-29 09:04 | disposition home or self-care (01) ==
LOC: HO.LAB 09:03
PROVIDERS: Visit Provider Urology
DX: C61 Malignant neoplasm of prostate (principal)
CPT/HCPCS: 36415; 84153; 84403

== ENCOUNTER 2025-07-06 08:47 | Outpatient (AMB) | payer OTHER, SELFPAY ==
--- NOTE | 2025-07-06 08:49 | A.OFFVIS_ITS ---
Intake Visit Reasons: 4m/PSA/Testo Intake Note: Patient is present for 4M F/U Urology Medication:FINASTERIDE Blood Thinner:ELIQUIS Labs Done: PSA 0.38, TOTAL TESTO 360 06/29/25 Network Design Architect Required: Yes Accompanied by: Self / Same As Patient Allergies No Known Allergies Allergy (Verified 07/06/25 08:51) HPI Comments Details: Alex hameed Colombian-speaking male. He is a patient of Dr. Snyder. He is seen for the following urologic conditions - lower urinary tract symptoms - elevated PSA Colombian translation provided by qualified medical technologist clinical PSA appears to have stabilized Testosterone recovery May stop finasteride Move to Q six-month follow-up PSA 10/17 <0.1 T 9, 02/15 0.25 T 790, 06/17 <0.1, 10/18 0.1, 02/16 0.5, 07/19 0.38 T 360 Will do family genetics at some point Prostate cancer 02/1423 Grade Group 2, high risk by PSA - Initial therapy XRT with 6 months GnRH plus finasteride for 12 months 06/16 XRT with 6m GnRH [facility] Elevated PSA 22.6 Histologic grade: Oswaldo score: 3+4=7 (left base lateral, left mid medial) 3+3=6 (left base medial, left mid lateral, left apex lateral, left apex medial, right base media l, right base lateral, right apex lateral, right mid lateral) Tumor quantitation: Number cores positive: 10 Total number of cores: 12 % of tissue involved: Approximately 35% of all tissue examined Periprostatic fat inv.: Not identified Seminal vesicle inv.: Not identified Perineural inv.: Present LVI: Not identified Strong family history with 2 brothers and 3 cousins with prostate cancer and fat her with prostate cancer Mother with uterine cancer Will need genetics at some point Imaging - 02/14 MRI PI-RADS 4 no evidence of HARRIETT - 02/14 bone scan normal 03/17 - SpaceOAR and gold seed marker Lower urinary tract symptoms Retention with over 500 cc in hospital Past voiding trial Current therapy Flomax PFSH Medical History Bacteremia History of prostate cancer HTN (hypertension), benign Atrial fibrillation Surgical History No pertinent past surgical history Family History Father Prostate cancer Social History Household Members: Children Housing: House Do you presently have visiting nurse or other home services: No Alcohol intake: never Patient Tobacco Use Status: Former Tobacco user service: No Review of Systems Const Denies chills and Denies fever(s) Card Reports no additional complaints and Denies syncope Resp Denies cough GI Denies abdominal pain and Denies heartburn Reports as per HPI and Denies change in libido Neuro Denies syncope Psych Denies change in libido Endo Denies change in libido Physical Exam Const General: cooperative, healthy appearing, comfortable and no acute distress Orientation/consciousness: patient oriented x3 HEENT Face and sinus: Yes normal facial exam Mouth: moist mucous membranes Neck Neck: Yes normal visual inspection, Yes full ROM and Yes trachea midline Chest Chest palpation & inspection: normal inspection of the chest Resp Effort & Inspection: normal respiratory effort, able to speak in complete sentences and no respiratory distress GI Inspection: Yes normal to inspection Back/Spine/Pelvis Cervical Spine: normal cervical lordosis Thoracic/Lumbar Spine: thoracic and lumbar spine normal to inspection Skin General skin exam: no rashes or lesions noted Neuro General: patient oriented x3, gait normal, tone normal and moves all extremities Extrem General: Yes normal to inspection and Yes capillary refill normal Assessment & Plan Assessment & Plan (1) Prostate cancer: Comment: Moderate volume, intermediate risk Code(s): C61 - Malignant neoplasm of prostate Category: Medical (2) Elevated PSA: Code(s): R97.20 - Elevated prostate specific antigen [PSA] Category: Medical Plan Six-month follow-up PSA Orders: Orders Prostate Specific Antigen 6 Months C61 - Malignant neoplasm of prostate Patient Instructions: This note is constructed using voice recognition software. While every effort has been made to ensure accuracy chief of internal medicine errors may have been included. Imaging studies, laboratory and physical exam results were discussed and reviewed in detail. No major barriers to patient understanding were identified. An opportunity to ask questions regarding the treatment plan was provided. All questions were answered. The patient expressed understanding and agreement with the above treatment plan. The patient is aware they should contact our office by phone for worsening of their current condition or the appearance of new urologic symptoms. Compliance is encouraged with any medications and followup testing that is ordered. It is a privilege to participate in the urologic care of your patient. If you have any questions or concerns regarding treatment for the above conditions, or other urologic issues, please do not hesitate to contact me. The office telephone contact is [phone]. Sincerely, Dr John Bustos MD, [facility] - Urology Compassionate Specialist Care for the Genitourinary System Coding Level of Care Code Est Pt Level 3 (25607) Complex EM visit Add On G2211 Diagnoses Prostate cancer C61 Elevated PSA R97.20
--- OUTSIDE RECORDS SUMMARY | 2025-07-06 09:05 | XMS_ITS ---
Author Organization [facility] Address [address] [address] Care Team Providers Care Online Merchandising Manager Name Role Phone IrvinsaraMelly bill DATA ANALYST ETL DEVELOPER Primary Care Provider [phone] SA38 [facility] Program Status:Enrolled (Active) Start date:04/15/2023 Enrollment date:04/15/2023 Case Team Name Relationship Phone Shyla Burrows LPN(Responsible Staff) [phone] Continued Care and Services Coordination
== END 2025-07-06 09:41 | disposition home or self-care (01) ==
PROVIDERS: PCP Nurse Practitioner Family; Visit Provider Urology
DX: C61 Malignant neoplasm of prostate (principal); R97.20 Elevated prostate specific antigen [PSA]
CPT/HCPCS: 99213; G2211

== ENCOUNTER → 2025-07-06 08:47 | Outpatient (BNVA) | payer OTHER, SELFPAY | PROVIDERS: PCP Nurse Practitioner Family; Visit Provider Urology | DX: C61 Malignant neoplasm of prostate (principal); R97.20 Elevated prostate specific antigen [PSA]; Z80.42 Family history of malignant neoplasm of prostate; Z80.49 Family history of malignant neoplasm of other genital organs | CPT/HCPCS: 99212 ==